=== PATIENT | male | born 1965 | race Two or more races ===

== ENCOUNTER 2024-04-09 19:35 | Emergency (ER) | payer MEDICARE, MEDICAID, SELFPAY ==
--- NOTE | 2024-04-09 19:38 | EKG_ITS ---
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: : 1965 Requested By: ED Temporary Provider Order Number: [id number] Reading MD: ED Temporary Provider Measurements Intervals [place] Rate: 104 P: 23 [place]: 145 QRS: -31 QRSD: 106 T: -1 QT: 320 QTc: 422 Interpretive Statements SINUS TACHYCARDIA LOW QRS VOLTAGE IN PRECORDIAL LEADS [QRS DEFLECTION < 1.0 mV IN CHEST LEADS] POSSIBLE RIGHT VENTRICULAR CONDUCTION DELAY [RSR (QR) IN V1/V2] ANTEROLATERAL MYOCARDIAL INFARCTION , OF INDETERMINATE AGE [40+ ms Q WAVE IN I/aVL/V3-V6] Compared to ECG 08/27/2023 20:38:06 Low QRS voltage now present Myocardial infarct finding now present /store/S0/[id number]
[2024-04-09 19:51] VITALS: BP 95/58; PULSE 106; RESP 20; TEMP 37; O2SAT 100
--- NOTE | 2024-04-09 20:20 | EDRME_ITS ---
Rapid Medical Screening Exam [facility], LAT[facility] Arrival date/time: 04/09/24 19:35 58M with history of fibromyalgia, CAD s/p CABG, HLD, DM, seizures, and memory loss/residual deficits 2/2 [place] presents to ED with 1 week of increased weakness. Patient also has 1 day of CP and SOB. Chief Complaint: Chest Pain Vital signs: Vital Signs Temperature 98.6 F 04/09/24 19:51 Pulse Rate 106 H 04/09/24 19:51 Respiratory Rate 20 04/09/24 19:51 Blood Pressure 95/58 L 04/09/24 19:51 Pulse Oximetry (%) 100 04/09/24 19:51 Oxygen Delivery Method Room Air 04/09/24 19:51
--- NOTE | 2024-04-09 20:21 | XR_ITS ---
Examination: AP chest single view Technique: AP portable upright chest single view Exam date and time: 11/08/20232038 hrs. Indications: Chest pain today. Findings: Mild enlargement cardiac contour CABG No pneumonia or pulmonary edema Impression: No pneumonia or pulmonary edema
[2024-04-09] MEDS: ASPIRIN 81 MG CHEW 324 MG PO (20:52)
[2024-04-09] MEDS: ONDANSETRON INJ 2 MG/ML INJ 2 ML 4 MG IV (20:53)
[2024-04-09] MEDS: MORPHINE SULF INJ 10 MG/ML VIAL 6 MG IVP (20:53)
[2024-04-09] MEDS: INSULIN HUM REGULAR 1 UNIT/0.01 ML (PER UNIT) 10 UNIT IV (20:53)
[2024-04-09 21:35] LABS: Base Excess, Venous 0 (-3-3); O2 Saturation, Venous 51 % (96-97); PCO2, Venous 41 mmHg (36-56); PO2, Venous 27 mmHg (15-58)
[2024-04-09 21:45] LABS: Basophils % (Auto) 0 % (0-2.5); Eosinophils # (Auto) 0.1 Thou/mm3 (0.0-0.5); Eosinophils % (Auto) 0 % (0-10); Hematocrit 40.3 % (41.0-53.0); Hemoglobin 14.3 g/dL (13.5-16.0); Immature Granulocytes % (Auto) 1 % (0-0); Immature Granulocytes Auto 0.06 Thou/mm3 (0.00-0.00); Lymphocytes # (Auto) 1.9 Thou/mm3 (1.0-4.8); Lymphocytes % (Auto) 16 % (10-50); Mean Corpuscular HGB Conc 35.5 g/dl (31.0-37.0); Mean Corpuscular Hemoglobin 27.9 pg (25.0-35.0); Mean Corpuscular Volume 79 fL (80-100); Monocytes # (Auto) 0.9 Thou/mm3 (0.0-0.8); Monocytes % (Auto) 8 % (0-12); Neutrophils # (Auto) 9.1 Thou/mm3 (1.8-7.7); Neutrophils % (Auto) 76 % (37-80); Nucleated Red Blood Cell % 0 /100 WBC (0); Platelet Count 323 Thou/mm3 (140-440); RDW Standard Deviation 36.2 fL (35.1-43.9); Red Blood Count 5.13 Miln/mm3 (4.50-5.90); White Blood Count 12.1 Thou/mm3 (3.8-10.6)
[2024-04-09 21:59] LABS: Lactate (Lactic Acid) 4.2 mMol/L (0.4-2.0)
[2024-04-09 22:17] LABS: Partial Thromboplastin Time 25.3 Seconds (22.0-36.0); Prothrombin Time 10.7 Seconds (9.0-12.2)
[2024-04-09 22:28] LABS: Alanine Aminotransferase 34 U/L (10-49); Albumin, Serum 5.2 gm/dL (3.5-5.0); Albumin/Globulin Ratio 1.9 (1.2-2.2); Alkaline Phosphatase 94 U/L (46-116); Anion Gap 10 (7-16); Aspartate Amino Transferase 21 U/L (0-34); BUN/Creatinine Ratio 17 Ratio (12-20); Bilirubin,Total 1.7 mg/dL (0.3-1.2); Blood Urea Nitrogen 25 mg/dL (9-23); Calcium 10.7 mg/dL (8.3-10.6); Calcium (Corrected) 10.7 mg/dL (8.5-10.1); Carbon Dioxide 24.3 mMol/L (20.0-31.0); Chloride 94 mMol/L (98-107); Creatinine (Component) 1.5 mg/dL (0.6-1.3); Globulin 2.8 gm/dL (2.3-3.5); Osmolality,Calculated 281 (275-295); Potassium 5.3 mMol/L (3.4-5.1); Sodium 128 mMol/L (136-145); Thyroid Stimulating Hormone 1.14 uIU/mL (0.55-4.78); Troponin I < 0.020 ng/mL (0.0-0.045); eGFR 54 See Note
[2024-04-09 22:30] VITALS: BP 94/62; PULSE 93; RESP 16; TEMP 36.7; O2SAT 97
[2024-04-09 22:30] LABS: B-Type Natriuretic Peptide < 20 pg/mL (0-100); Glucose 463 mg/dL (74-106)
[2024-04-09 22:42] LABS: D-Dimer < 250 ng/mL (<600)
[2024-04-09 22:52] LABS: Beta Hydroxybutyrate 0.2 mmol/L (<0.6)
[2024-04-09 23:14] LABS: Collection Type, Urine Clean Catch
[2024-04-09 23:23] LABS: Bilirubin,Urine Negative (Negative); Blood,Urine Negative (Negative); Clarity,Urine Turbid (Clear/Hazy); Color,Urine Yellow (Lt Yel-Yel); Culture Indicated,Urine Not Indicated; Glucose, Urine 4+ (Negative); Hyaline Casts,Urine < 1 /hpf (0-1); Ketones,Urine Negative (Negative); Leukocyte Esterase,Urine Negative (Negative); Nitrite,Urine Negative (Negative); PH,Urine 5.5 (5.0-7.0); Protein,Urine 1+ (Neg - Trace); RBC,Urine < 1 /hpf (0-3); Specific Gravity,Urine 1.027 (1.001-1.035); Squamous Epithelial Cell,Urine < 1 /hpf (0-5); Urobilinogen,Urine Negative mg/dL (0.0-1.0); WBC,Urine 6 /hpf (0-5)
[2024-04-09 23:34] LABS: Troponin I < 0.020 ng/mL (0.0-0.045)
[2024-04-10 00:23] LABS: Reflex Lactate? Y
--- NOTE | 2024-04-10 00:48 | PD.EDCHEST ---
ED Chest Pain RME/HPI General Chief Complaint: Chest Pain Stated Complaint: CHEST PAIN, IM HAVING HEART ATTACK Time Seen by Provider: 04/09/24 20:41 Arrival date/time: 04/09/24 19:35 RME / HPI RME / HPI narrative: 04/09/24 19:35 58M with history of fibromyalgia, CAD s/p CABG, HLD, DM, seizures, and memory loss/residual deficits 2/2 [place] presents to ED with 1 week of increased weakness. Patient also has 1 day of CP and SOB. This section includes all my notes and documentations, including HPI, PE, and ED course. Manohar Selby MD HPI: 58-year-old male here to be evaluated with a couple day history of chest pain, severely worse in the past few hours. He localizes pain in the left side of the sternum. Worse with palpation and certain movement. No other complaints. ROS: All negative except as documented in HPI. Physical Exam: General: Alert and oriented. Appears comfortable. Eyes: Conjunctivae and lids clear. ENT: No nasal congestion. Neck: Supple. No JVD. Heart: RRR. Lungs: No respiratory distress. Good air movement. No rhonchi, wheezing, rales. Chest: Palpation of the anterior chest left of the sternum reproduces his pain. Abdomen: Soft and nontender. Back: No CVA tenderness. Skin: Warm and dry. Neuro: Alert and oriented X 3. I reviewed all diagnostic test results. My interpretation of the EKG is sinus rhythm with nonspecific ST?T changes. My interpretation of the chest x-ray is no acute findings. Blood tests remarkable for negative troponin/D-dimer/BNP and hyperglycemia. At this point, diagnoses include chest wall pain and hyperglycemia. Treatment here included aspirin and morphine and insulin. Significant improvement noted. Recommended more outpatient cardiac workup. Based on my best medical judgment, made decision no further evaluation or treatment indicated at this time. Patient understands and agrees to the discharge instructions customized and printed, see below. Discharge instructions from Dr. Selby: 1. After extensive evaluation, there is no life-threatening condition.? Such as heart attack or pulmonary embolism (blood clots in your lungs) or pneumothorax (collapsed lung). 2. Your pain is originating from the chest wall and not from an internal organ.? The chest wall has many joints and muscles between the ribs, so sprains and strains are common. 3. Apply ice or heat if helpful.? Tylenol with codeine for severe pain. 4. See a private doctor on 04/13/2024. Ask to review all test results and official radiology reports, to make sure you receive all necessary follow-ups and monitoring. To make sure there is no serious underlying heart condition, ask to help you get more tests for your heart that cannot be done here in the ER.? Such as Holter Monitor (cardiac monitoring at home from a day to even a month), heart stress test (on treadmill or with medication), echocardiogram (imaging of your heart structures), heart catherization (checking for blockages in your heart arteries), and a referral to see a [employer] Sc[employer]ager. 5. Seek immediate medical care with worsening or with any concerns. Manohar Selby MD Related Data Home Medications ?Medication ?Instructions ?Recorded ?Confirmed sitagliptin phosphate 50 50 mg PO BID 04/04/18 02/21/21 mg-metformin 1,000 mg tablet (Janumet) aripiprazole 30 mg tablet 30 mg PO QDAY 06/06/18 02/21/21 atorvastatin 40 mg tablet 40 mg PO QDAY 06/06/18 05/26/19 baclofen 20 mg tablet 20 mg PO TID 06/06/18 05/26/19 clonazepam 1 mg tablet 1 mg PO BID 06/06/18 05/26/19 divalproex 500 mg tablet,extended 500 mg PO QDAY 06/06/18 02/21/21 release 24 hr duloxetine 60 mg capsule,delayed 60 mg PO QDAY 06/06/18 02/03/20 release fluconazole 200 mg tablet 200 mg PO QDAY 06/06/18 05/26/19 gabapentin 400 mg capsule 400 mg PO TID 06/06/18 02/03/20 oxycodone-acetaminophen 10 mg-325 1 tab PO DAILY PRN Pain 06/06/18 05/26/19 mg tablet pentoxifylline 400 mg 400 mg PO TID 06/06/18 05/26/19 tablet,extended release phenytoin sodium extended 100 mg 100 mg PO BID 06/06/18 05/26/19 capsule propranolol 10 mg tablet 10 mg PO BID 06/06/18 02/03/20 zaleplon 10 mg capsule 10 mg PO QDAY 06/06/18 05/26/19 Previous Rx's ?Medication ?Instructions ?Recorded acyclovir 800 mg tablet 800 mg PO TID #28 tabs 05/29/19 aspirin 81 mg tablet,delayed 81 mg PO QDAY #30 tabs 05/29/19 release (Aspir-Low) insulin detemir U-100 100 unit/mL 30 unit (0.3 mL) subcut QPM #0 mL 05/29/19 (3 mL) subcutaneous pen (Levemir FlexTouch U-100 Insulin) acetaminophen 300 mg-codeine 30 mg 2 tab PO TID PRN pain #20 tabs 04/10/24 tablet Allergies Allergy/AdvReac Type Severity Reaction Status Date / Time No Known Allergies Allergy Verified 02/03/20 13:46 Course Quality Measures none Orders Category Date Time Status Blood glucose [Bedside Blood Glucose] NOW Care 04/09/24 20:21 Active EKG (ED ONLY) *Do not use* NOW Care 04/09/24 19:38 Completed Insert IV NOW Care 04/09/24 20:25 Active Straight [In and Out Catheter] X1 Care 04/09/24 20:44 Active EKG (ED Only) Stat Exams 04/09/24 19:38 Draft XR chest 1V portable Stat Exams 04/09/24 20:21 Completed B-Type Natriuretic Peptide Stat Lab 04/09/24 21:00 Completed Beta Hydroxybutyrate Stat Lab 04/09/24 21:00 Completed CBC Stat Lab 04/09/24 21:00 Completed Comprehensive Metabolic Panel Stat Lab 04/09/24 21:00 Completed D-Dimer Stat Lab 04/09/24 21:00 Completed Lactate (Lactic Acid) Stat Lab 04/09/24 21:00 Completed Lactic Acid, 3 HR Stat Lab 04/10/24 00:23 Ordered Magnesium Stat Lab 04/09/24 21:00 Completed Partial Thromboplastin Time Stat Lab 04/09/24 21:00 Completed Prothrombin Time with INR Stat Lab 04/09/24 21:00 Completed TSH [Thyroid Stimulating Hormone] Stat Lab 04/09/24 21:00 Completed Troponin I Stat Lab 04/09/24 21:00 Completed Troponin I Stat Lab 04/09/24 23:08 Completed UA, C/S IF [Urinalysis, C/S if Indicated] Stat Lab 04/09/24 23:09 Completed VBG [Venous Blood Gas] Stat Lab 04/09/24 21:00 Completed Aspirin Chew Med 04/09/24 20:44 Discontinued 324 mg PO X1 ONE Insulin Regular Med 04/09/24 20:45 Discontinued 10 unit IV X1 ONE Morphine Inj Med 04/09/24 20:44 Discontinued 6 mg IVP X1 ONE Ondansetron Inj [Zofran Inj] Med 04/09/24 20:44 Discontinued 4 mg IV X1 ONE Vital Signs Vital signs: Vital Signs Temperature 98.6 F 04/09/24 19:51 Pulse Rate 106 H 04/09/24 19:51 Respiratory Rate 20 04/09/24 19:51 Blood Pressure 95/58 L 04/09/24 19:51 Pulse Oximetry (%) 100 04/09/24 19:51 Oxygen Delivery Method Room Air 04/09/24 19:51 Chest Pain Patient data External records reviewed:: [facility] previous records and EMS form Clinical information provided by:: patient and EMS Social determinants that could affect healthcare access:: none Patient has the following chronic illnesses:: CAD and hyperlipidemia and DM and alcohol use How is presenting disease/condition affected by chronic disease/condition?: exacerbated by Evaluation data The following diagnostics were reviewed and interpreted by me:: lab results, radiology exam(s) and EKG tracing(s) Lab and/or radiology exams considered but not ordered:: None Interpretation Summary: Chest wall pain and hyperglycemia Medications / Prescriptions Medications or Prescriptions considered but not ordered:: None Medication administrations:: Medication Administration History Discontinued Medications Aspirin (Aspirin 81 Mg Chew) 324 mg PO X1 ONE Stop: 04/09/24 20:45 Last Admin: 04/09/24 20:52 Dose: 324 mg Documented By: JU Insulin Human Regular (Insulin Hum Regular 1 Unit/0.01 Ml (Per Unit)) 10 unit IV X1 ONE Stop: 04/09/24 20:46 Last Admin: 04/09/24 20:53 Dose: 10 unit Documented By: JU Co-signed By: CECILE Morphine Sulfate (Morphine Sulf Inj 10 Mg/Ml Vial) 6 mg IVP X1 ONE Stop: 04/09/24 20:45 Last Admin: 04/09/24 20:53 Dose: 6 mg Documented By: JU Ondansetron HCl (Ondansetron Inj 2 Mg/Ml Inj 2 Ml) 4 mg IV X1 ONE; Protocol Stop: 04/09/24 20:45 Last Admin: 04/09/24 20:53 Dose: 4 mg Documented By: DB Aspirin and morphine and insulin Consultations Consultation(s) initiated? (list below): No Diagnosis Chest Pain Differential Diagnosis: pneumothorax, stable angina, unstable angina pectoris, atypical chest pain, st elevation myocardial infarction, costochondritis and other (PE, CHF, pneumonia) Most likely diagnosis given after review of the tests above:: Chest wall pain and hyperglycemia Admission Indicated Admission indicated?: not indicated Explain why admission is indicated or not indicated:: Admission criteria not met Admission Request Was there a request for admission?: No Disposition Plan Disposition Plan: Discharge Discharge Attestation Discharge Attestation: The patient and all family members were given an opportunity to ask questions and understood the discharge instructions. Discharge instructions specifically effects, indications for sooner follow up or return to the emergency department, and the expected course of current diagnosis. Patient condition: Stable Discharge Plan Plan Patient Disposition: HOME (Self Care) Prescriptions/Referrals Prescriptions/Med Rec: New acetaminophen-codeine 300-30 mg tablet 2 tab PO TID MDD 6 PRN (Reason: pain) Qty: 20 0RF No Action Janumet 50-1,000 mg Tablet 50 mg PO BID atorvastatin 40 mg Tablet 40 mg PO QDAY fluconazole 200 mg Tablet 200 mg PO QDAY gabapentin 400 mg Capsule 400 mg PO TID clonazepam 1 mg Tablet 1 mg PO BID phenytoin sodium extended 100 mg Capsule 100 mg PO BID pentoxifylline 400 mg Tablet Extended Release 400 mg PO TID baclofen 20 mg Tablet 20 mg PO TID propranolol 10 mg Tablet 10 mg PO BID oxycodone-acetaminophen 10-325 mg Tablet 1 tab PO DAILY PRN (Reason: Pain) divalproex 500 mg Tablet Extended Release 24 Hr 500 mg PO QDAY zaleplon 10 mg Capsule 10 mg PO QDAY aripiprazole 30 mg Tablet 30 mg PO QDAY duloxetine 60 mg Capsule,Delayed Release(Dr/Ec) 60 mg PO QDAY aspirin [Aspir-Low] 81 mg Tablet,Delayed Release (Dr/Ec) 81 mg PO QDAY Qty: 30 0RF acyclovir 800 mg Tablet 800 mg PO TID Qty: 28 0RF Levemir FlexTouch U100 Insulin 100 unit/mL (3 mL) Insulin Pen 30 unit SUBCUT QPM Qty: 0 0RF Referrals: Etienne Fernando MD [Primary Care Provider] - In 1 week Problem List Clinical Impression: Chest wall pain Patient/Caregiver Discharge Instructions Discharge Activity: activity as tolerated Education Materials: ED Chest Pain, Noncardiac Additional Instructions: Discharge instructions from Dr. Selby: 1. After extensive evaluation, there is no life-threatening condition.? Such as heart attack or pulmonary embolism (blood clots in your lungs) or pneumothorax (collapsed lung). 2. Your pain is originating from the chest wall and not from an internal organ.? The chest wall has many joints and muscles between the ribs, so sprains and strains are common.?? 3. Apply ice or heat if helpful.? Tylenol with codeine for severe pain. 4. See a private doctor on 04/13/2024. Ask to review all test results and official radiology reports, to make sure you receive all necessary follow-ups and monitoring. To make sure there is no serious underlying heart condition, ask to help you get more tests for your heart that cannot be done here in the ER.? Such as Holter Monitor (cardiac monitoring at home from a day to even a month), heart stress test (on treadmill or with medication), echocardiogram (imaging of your heart structures), heart catherization (checking for blockages in your heart arteries), and a referral to see a [employer] Sc[employer]ager.? 5. Seek immediate medical care with worsening or with any concerns.?? Discharge instructions from Dr. Selby: 1. After extensive evaluation, there is no life-threatening condition.? Such as heart attack or pulmonary embolism (blood clots in your lungs) or pneumothorax (collapsed lung). 2. Your pain is originating from the chest wall and not from an internal organ.? The chest wall has many joints and muscles between the ribs, so sprains and strains are common. 3. Apply ice or heat if helpful.? Tylenol with codeine for severe pain. 4. See a private doctor on 04/13/2024. Ask to review all test results and official radiology reports, to make sure you receive all necessary follow-ups and monitoring. To make sure there is no serious underlying heart condition, ask to help you get more tests for your heart that cannot be done here in the ER.? Such as Holter Monitor (cardiac monitoring at home from a day to even a month), heart stress test (on treadmill or with medication), echocardiogram (imaging of your heart structures), heart catherization (checking for blockages in your heart arteries), and a referral to see a Text[employer] Scrap Salvager. 5. Seek immediate medical care with worsening or with any concerns. Print Language: Khmer Stand Alone Forms: Mini Award Info., Patient Portal Info Letter
[2024-04-10 01:10] VITALS: BP 97/57; PULSE 97; RESP 16; TEMP 36.8; O2SAT 99
== END 2024-04-10 01:06 | disposition home or self-care (01) ==
PROVIDERS: Physician Assistant; Emergency Provider Emergency Medicine; PCP Family Medicine
DX: R07.89 Other chest pain (principal); I25.10 Atherosclerotic heart disease of native coronary artery without angina pectoris; E78.5 Hyperlipidemia, unspecified; E11.65 Type 2 diabetes mellitus with hyperglycemia; M79.7 Fibromyalgia; Z95.1 Presence of aortocoronary bypass graft; Z79.84 Long term (current) use of oral hypoglycemic drugs
CPT/HCPCS: 36415; 71045; 80053; 81001; 82010; 82803; 83605; 83735; 83880; 84443; 84484; 85025; 85379; 85610; 85730; 93005; 96374; 96375; 99284; J1815; J2270; J2405; A9270

== ENCOUNTER 2024-06-18 14:52 | Emergency (ER) | payer MEDICARE, MEDICAID, SELFPAY ==
--- NOTE | 2024-06-18 15:06 | EKG_ITS ---
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1965 Requested By: Perez Dalton (PANKAJ) Order Number: [id number] Reading MD: Perez Dalton (PANKAJ) Measurements Intervals [place] Rate: 112 P: 33 [place]: 141 QRS: -31 QRSD: 95 T: -20 QT: 321 QTc: 438 Interpretive Statements SINUS TACHYCARDIA POSSIBLE RIGHT VENTRICULAR CONDUCTION DELAY [RSR (QR) IN V1/V2] INFERIOR MYOCARDIAL INFARCTION , OF INDETERMINATE AGE [40+ ms Q WAVE AND/OR ST/T ABNORMALITY IN II/aVF] ANTEROLATERAL MYOCARDIAL INFARCTION , OF INDETERMINATE AGE [40+ ms Q WAVE IN I/aVL/V3-V6] Compared to ECG 04/09/2024 20:01:36 No significant changes /store/S0/[id number]/[id number].pdf
[2024-06-18 15:12] VITALS: BP 105/69; PULSE 115; RESP 18; TEMP 36.6; O2SAT 96; BMI 28.1
--- NOTE | 2024-06-18 15:15 | XR_ITS ---
Examination: CT abdomen and pelvis without contrast. Coronal 3-D reconstructions. Sagittal 2-D reconstructions. Date and time of exam:June 18, 2024 1533 hours Comparison August 17, 2023 INDICATIONS: Bilateral flank pain with left testicular pain today CTDI: vol (mGy): 8.13 DLP: (mGycm): 545 Technique: Axial images of the abdomen have been obtained, 3 mm slice thickness Intravenous contrast material has not been administered. Low dose protocols were performed. One or more of the following dose reduction techniques were used; automated exposure control, adjustment of the mA and/or KV according to patient size, use of iterative reconstruction technique. Findings: No focal liver or splenic lesion Absent gallbladder No pancreatic mass No renal or ureteral calculi, no hydronephrosis Mild perinephric stranding Abdominal aortic calcification no aneurysmal dilatation No pericecal inflammatory change Colonic diverticulosis, no diverticulitis No bladder mass or bladder calculi No significant prostatomegaly IMPRESSION: No renal or ureteral calculi, no hydronephrosis Perinephric stranding, clinical correlation advised No bladder mass or bladder calculi
--- NOTE | 2024-06-18 15:16 | PD.EDRME ---
Rapid Medical Screening Exam RME Arrival date/time: 06/18/24 14:52 59-year-old male presents to the emergency department complaints of lower back pain and flank pain Chief Complaint: Back Pain/Injury Time Seen by Provider: 06/18/24 15:06 Vital signs: Vital Signs Temperature 98 F 06/18/24 15:12 Pulse Rate 115 H 06/18/24 15:12 Respiratory Rate 18 06/18/24 15:12 Blood Pressure 105/69 06/18/24 15:12 Pulse Oximetry (%) 96 06/18/24 15:12 Oxygen Delivery Method Room Air 06/18/24 15:12
[2024-06-18] MEDS: KETOROLAC INJ 30 MG/ML VIAL IM (15:24)
[2024-06-18] MEDS: HYDROcodone/APAP 5/325 TABLET 1 TAB PO (15:24)
[2024-06-18 16:07] LABS: Basophils % (Auto) 0 % (0-2.5); Eosinophils # (Auto) 0.1 Thou/mm3 (0.0-0.5); Eosinophils % (Auto) 1 % (0-10); Hematocrit 39.5 % (41.0-53.0); Hemoglobin 13.8 g/dL (13.5-16.0); Immature Granulocytes % (Auto) 0 % (0-0); Immature Granulocytes Auto 0.04 Thou/mm3 (0.00-0.00); Lymphocytes # (Auto) 1.6 Thou/mm3 (1.0-4.8); Lymphocytes % (Auto) 17 % (10-50); Mean Corpuscular HGB Conc 34.9 g/dl (31.0-37.0); Mean Corpuscular Hemoglobin 28.2 pg (25.0-35.0); Mean Corpuscular Volume 81 fL (80-100); Monocytes # (Auto) 0.7 Thou/mm3 (0.0-0.8); Monocytes % (Auto) 7 % (0-12); Neutrophils # (Auto) 7.1 Thou/mm3 (1.8-7.7); Neutrophils % (Auto) 75 % (37-80); Nucleated Red Blood Cell % 0 /100 WBC (0); Platelet Count 349 Thou/mm3 (140-440); RDW Standard Deviation 37.4 fL (35.1-43.9); White Blood Count 9.5 Thou/mm3 (3.8-10.6)
[2024-06-18 16:40] LABS: Alanine Aminotransferase 27 U/L (10-49); Albumin, Serum 4.4 gm/dL (3.5-5.0); Albumin/Globulin Ratio 1.6 (1.2-2.2); Alkaline Phosphatase 80 U/L (46-116); Anion Gap 10 (7-16); Aspartate Amino Transferase 22 U/L (0-34); BUN/Creatinine Ratio 13 Ratio (12-20); Blood Urea Nitrogen 15 mg/dL (9-23); Calcium 9.5 mg/dL (8.3-10.6); Calcium (Corrected) 9.5 mg/dL (8.5-10.1); Carbon Dioxide 24.2 mMol/L (20.0-31.0); Chloride 100 mMol/L (98-107); Creatinine (Component) 1.2 mg/dL (0.6-1.3); Estimated Creatinine Clearance 68.6 mL/min (>60); Globulin 2.7 gm/dL (2.3-3.5); Lipase 40 U/L (12-53); Osmolality,Calculated 294 (275-295); Potassium 4.3 mMol/L (3.4-5.1); Sodium 134 mMol/L (136-145); Total Protein 7.1 gm/dL (5.7-8.2); eGFR > 60 See Note
[2024-06-18 16:58] LABS: Glucose 544 mg/dL (74-106)
[2024-06-18 17:50] LABS: Collection Type, Urine Clean Catch; Squamous Epithelial Cell,Urine 0 /hpf (0-5); WBC,Urine 0 /hpf (0-5)
[2024-06-18 17:55] LABS: Bilirubin,Urine Negative (Negative); Blood,Urine Negative (Negative); Clarity,Urine Clear (Clear/Hazy); Color,Urine Lt-Yellow (Lt Yel-Yel); Culture Indicated,Urine Not Indicated; Glucose, Urine 4+ (Negative); Ketones,Urine Negative (Negative); Leukocyte Esterase,Urine Negative (Negative); Nitrite,Urine Negative (Negative); Protein,Urine Negative (Neg - Trace); RBC,Urine < 1 /hpf (0-3); Specific Gravity,Urine 1.035 (1.001-1.035); Urobilinogen,Urine Negative mg/dL (0.0-1.0)
[2024-06-18 18:07] LABS: Amphetamine/Methamp Scrn,U Negative (Negative); Barbiturate Screen,Urine Negative (Negative); Benzodiazepines Screen,Urine Negative (Negative); Benzoylecgonine Screen, Ur Negative (Negative); Fentanyl Screen,Urine Negative (Negative); Opiate Screen,Urine Negative (Negative); THC Screen,Urine Negative (Negative)
--- NOTE | 2024-06-18 18:34 | PD.EDBACK ---
ED Back Injury Pain RME/HPI General Chief Complaint: Back Pain/Injury Stated Complaint: FLANK PAIN X4 DAYS Time Seen by Provider: 06/18/24 15:06 Arrival date/time: 06/18/24 14:52 RME / HPI RME / HPI Narrative: 59-year-old male patient with significant history of diabetes mellitus, came in for evaluation regarding left flank pain. This been ongoing for the last 4 days. Described as dull ache, severity moderate. Patient denies any fever denies any hematuria denies any vomiting denies any other complaints. Patient took [place] prior to arrival Related Data Home Medications ?Medication ?Instructions ?Recorded ?Confirmed sitagliptin phosphate 50 50 mg PO BID 04/04/18 02/21/21 mg-metformin 1,000 mg tablet (Janumet) aripiprazole 30 mg tablet 30 mg PO QDAY 06/06/18 02/21/21 atorvastatin 40 mg tablet 40 mg PO QDAY 06/06/18 05/26/19 baclofen 20 mg tablet 20 mg PO TID 06/06/18 05/26/19 clonazepam 1 mg tablet 1 mg PO BID 06/06/18 05/26/19 divalproex 500 mg tablet,extended 500 mg PO QDAY 06/06/18 02/21/21 release 24 hr duloxetine 60 mg capsule,delayed 60 mg PO QDAY 06/06/18 02/03/20 release fluconazole 200 mg tablet 200 mg PO QDAY 06/06/18 05/26/19 gabapentin 400 mg capsule 400 mg PO TID 06/06/18 02/03/20 oxycodone-acetaminophen 10 mg-325 1 tab PO DAILY PRN Pain 06/06/18 05/26/19 mg tablet pentoxifylline 400 mg 400 mg PO TID 06/06/18 05/26/19 tablet,extended release phenytoin sodium extended 100 mg 100 mg PO BID 06/06/18 05/26/19 capsule propranolol 10 mg tablet 10 mg PO BID 06/06/18 02/03/20 zaleplon 10 mg capsule 10 mg PO QDAY 06/06/18 05/26/19 Previous Rx's ?Medication ?Instructions ?Recorded acyclovir 800 mg tablet 800 mg PO TID #28 tabs 05/29/19 aspirin 81 mg tablet,delayed 81 mg PO QDAY #30 tabs 05/29/19 release (Aspir-Low) insulin detemir U-100 100 unit/mL 30 unit (0.3 mL) subcut QPM #0 mL 05/29/19 (3 mL) subcutaneous pen (Levemir FlexTouch U-100 Insulin) acetaminophen 300 mg-codeine 30 mg 2 tab PO TID PRN pain #20 tabs 04/10/24 tablet Allergies Allergy/AdvReac Type Severity Reaction Status Date / Time No Known Allergies Allergy Verified 02/03/20 13:46 Review of Systems Review of Systems Narrative Review of Systems: Review of system reviewed and within normal limits except mentioned in HPI ED Exam Narrative Physical exam: VITAL SIGNS: Reviewed. GENERAL APPEARANCE: Alert and interactive, follows commands, no acute distress, HEAD AND FACE: Non-traumatic. ENT: PERRL, pink conjunctivitis, eyelid no trauma, Mucous membrane moist. NECK: Supple, nontender, no nuchal rigidity. CHEST: No tenderness, no crepitus, no paradoxical movement, no retractions. LUNGS: Clear, well ventilated, symmetric, no rales, no wheezing, no ronchi, no stridor, good breath sounds bilaterally. HEART: Regular rate, regular rhythm, no murmur, no gallops. ABDOMEN: Soft, positive bowel sounds, nondistended, no guarding, nontender, no rebound, no masses, RECTAL: Deferred. GENITAL: Deferred. NEUROLOGICAL: Gross motor function intact sensory function intact, Appropriate for age. MUSCULOSKELETAL: Left flank tenderness, full range of motion. EXTREMITIES: Nontender, full range of motion. SKIN: Color pink, dry, no rash, no lacerations, no abrasions, no contusions. LYMPHATICS: Deferred. Course Quality Measures none Orders Category Date Time Status EKG (ED ONLY) *Do not use* NOW Care 06/18/24 15:[address] abdomen pelvis wo con Stat Exams 06/18/24 15:15 Completed EKG (ED Only) Stat Exams 06/18/24 15:06 Draft CBC Stat Lab 06/18/24 15:30 Completed Comprehensive Metabolic Panel Stat Lab 06/18/24 15:30 Completed Drug Screen,Urine Stat Lab 06/18/24 17:45 Completed Lipase Stat Lab 06/18/24 15:30 Completed UA, C/S IF [Urinalysis, C/S if Indicated] Stat Lab 06/18/24 17:45 Completed HYDROcodone*/APAP 5/325 [[place] 5/325] Med 06/18/24 15:15 Discontinued 1 tab PO X1 ONE Ketorolac Inj [Toradol Inj] Med 06/18/24 15:15 Discontinued 30 mg IM X1 ONE Vital Signs Vital signs: Vital Signs Temperature 98 F 06/18/24 15:12 Pulse Rate 115 H 06/18/24 15:12 Respiratory Rate 18 06/18/24 15:12 Blood Pressure 105/69 06/18/24 15:12 Pulse Oximetry (%) 96 06/18/24 15:12 Oxygen Delivery Method Room Air 06/18/24 15:12 Back Pain / Injury MDM Narrative MDM Narrative:: 59-year-old male patient with significant history of diabetes mellitus, came in for evaluation regarding left flank pain. This been ongoing for the last 4 days. Described as dull ache, severity moderate. Patient denies any fever denies any hematuria denies any vomiting denies any other complaints. Patient took [place] prior to arrival Patient's workup today all came back normal except for a blood sugar of 544 with no sign of diabetic ketoacidosis. Urinalysis no UTI. CT scan of the abdomen and pelvis showed No renal or ureteral calculi, no hydronephrosis Perinephric stranding, clinical correlation advised No bladder mass or bladder calculi Results discussed with the patient. Repeat blood sugar was not done since patient eloped from the emergency room Patient data External records reviewed:: None Clinical information provided by:: patient Social determinants that could affect healthcare access:: none Patient has the following chronic illnesses:: Diabetes mellitus How is presenting disease/condition affected by chronic disease/condition?: exacerbated by Evaluation data The following diagnostics were reviewed and interpreted by me:: lab results and radiology exam(s) Lab and/or radiology exams considered but not ordered:: None Interpretation Summary: EKG showed sinus tachycardia, ventricular rate of 112 bpm, no ST segment elevation depression noted. Laboratory results see MDM Medications / Prescriptions Medications or Prescriptions considered but not ordered:: None Medication administrations:: Medication Administration History Discontinued Medications Hydrocodone Bitart/Acetaminophen (Hydrocodone/Apap 5/325 Tablet) 1 tab PO X1 ONE Stop: 06/18/24 15:16 Last Admin: 06/18/24 15:24 Dose: 1 tab Documented By: Ketorolac Tromethamine (Ketorolac Inj 30 Mg/Ml Vial) 30 mg IM X1 ONE Stop: 06/18/24 15:16 Last Admin: 06/18/24 15:24 Dose: 30 mg Documented By: [place] and Toradol Consultations Consultation(s) initiated? (list below): No Diagnosis Differential diagnosis back pain/injury: lumbar radiculopathy, sciatica and renal colic Most likely diagnosis given after review of the tests above:: Plan pain, muscular, hyperglycemia Admission Indicated Admission indicated?: not indicated Admission Request Was there a request for admission?: No Admission Attestation Admission request attestation: Elopement Disposition Plan Disposition Plan: Discharge Discharge Attestation Discharge Attestation: Elopement Discharge Plan Plan Patient Disposition: Elopement Prescriptions/Referrals Prescriptions/Med Rec: No Action Janumet 50-1,000 mg Tablet 50 mg PO BID atorvastatin 40 mg Tablet 40 mg PO QDAY fluconazole 200 mg Tablet 200 mg PO QDAY gabapentin 400 mg Capsule 400 mg PO TID clonazepam 1 mg Tablet 1 mg PO BID phenytoin sodium extended 100 mg Capsule 100 mg PO BID pentoxifylline 400 mg Tablet Extended Release 400 mg PO TID baclofen 20 mg Tablet 20 mg PO TID propranolol 10 mg Tablet 10 mg PO BID oxycodone-acetaminophen 10-325 mg Tablet 1 tab PO DAILY PRN (Reason: Pain) divalproex 500 mg Tablet Extended Release 24 Hr 500 mg PO QDAY zaleplon 10 mg Capsule 10 mg PO QDAY aripiprazole 30 mg Tablet 30 mg PO QDAY duloxetine 60 mg Capsule,Delayed Release(Dr/Ec) 60 mg PO QDAY aspirin [Aspir-Low] 81 mg Tablet,Delayed Release (Dr/Ec) 81 mg PO QDAY Qty: 30 0RF acyclovir 800 mg Tablet 800 mg PO TID Qty: 28 0RF Levemir FlexTouch U100 Insulin 100 unit/mL (3 mL) Insulin Pen 30 unit SUBCUT QPM Qty: 0 0RF acetaminophen-codeine 300-30 mg tablet 2 tab PO TID MDD 6 PRN (Reason: pain) Qty: 20 0RF Referrals: Etienne Fernando MD [Primary Care Provider] - In 1 week Problem List Clinical Impression: Hyperglycemia, Flank pain Patient/Caregiver Discharge Instructions Print Language: Slovak
--- NOTE | 2024-06-18 19:03 | PC.NURSE ---
NO ANSWER AT ER LOBBY OR OUTSIDE ER TO BE RE EVALUATED.
== END 2024-06-18 19:04 | disposition left against medical advice (07) ==
PROVIDERS: Nurse Practitioner Primary Care; Emergency Provider Emergency Medicine; PCP Family Medicine
DX: E11.65 Type 2 diabetes mellitus with hyperglycemia (principal); R10.9 Unspecified abdominal pain; R00.0 Tachycardia, unspecified; Z79.4 Long term (current) use of insulin; Z79.84 Long term (current) use of oral hypoglycemic drugs; Z53.29 Procedure and treatment not carried out because of patient's decision for other reasons
CPT/HCPCS: 36415; 74176; 80053; 80307; 81001; 83690; 85025; 93005; 96372; 99284; J1885; A9270

== ENCOUNTER 2024-10-07 21:35 | Emergency (ER) | payer MEDICARE, MEDICAID, SELFPAY ==
--- NOTE | 2024-10-07 21:38 | XR_ITS ---
Examination: AP chest single view Technique AP portable sitting chest single view Date and time: October 07, 2024 at 2153 hours INDICATIONS: Chest pain and shortness of breath beginning today. FINDINGS: Mild enlargement cardiac contour CABG No pneumonia or pulmonary edema Moderate osteopenia IMPRESSION: No pneumonia or pulmonary edema
--- NOTE | 2024-10-07 21:38 | EKG_ITS ---
[facility] Test Date: 2024-10-07 Pat Name: SAMIA JEROME Department: Room: - Gender: Male Drapery Maker: : 1965 Requested By: Halie Uribe Order Number: [id number] Reading MD: Halie Uribe Measurements Intervals [place] Rate: 99 P: 34 IA: 139 QRS: -24 QRSD: 96 T: 20 QT: 346 QTc: 446 Interpretive Statements SINUS RHYTHM POSSIBLE RIGHT VENTRICULAR CONDUCTION DELAY [RSR (QR) IN V1/V2] PROBABLE LATERAL MYOCARDIAL INFARCTION , PROBABLY OLD [35 ms Q WAVE IN I/aVL/V5/V6] Compared to ECG 06/18/2024 15:22:23 Sinus tachycardia no longer present Myocardial infarct finding still present /store/S0/[id number]/ecg/[id number].pdf
[2024-10-07 21:42] VITALS: PULSE 99; RESP 22; O2SAT 98; BMI 26.6
--- NOTE | 2024-10-07 21:44 | PD.EDCHEST ---
ED Chest Pain RME/HPI General Chief Complaint: Chest Pain Stated Complaint: CHEST PAIN Time Seen by Provider: 10/07/24 21:37 Arrival date/time: 10/07/24 21:35 RME / HPI RME / HPI narrative: DR WEST MAIN ED EVALUATION: 59 y/o male with Hx of [place], Seizures, CAD, Atherosclerotic Heart Disease, Hypercholesterolemia, Cardiomyopathy, HTN, Schizophrenia, and Anxiety BIBA from home presents to ED c/o chest pain that radiates to his left arm and shortness of breath x just [employer]. Patient admits to stent placements and taking Nitroglycerin at home. Patient denies cough or any other associated symptoms or aggravating factors. No modifying factors, no radiation, no migration. No pain reported overall. No other concerns or complaints expressed at this time. Related Data Home Medications ?Medication ?Instructions ?Recorded ?Confirmed sitagliptin phosphate 50 50 mg PO BID 04/04/18 02/21/21 mg-metformin 1,000 mg tablet (Heathumenatalya) aripiprazole 30 mg tablet 30 mg PO QDAY 06/06/18 02/21/21 atorvastatin 40 mg tablet 40 mg PO QDAY 06/06/18 05/26/19 baclofen 20 mg tablet 20 mg PO TID 06/06/18 05/26/19 clonazepam 1 mg tablet 1 mg PO BID 06/06/18 05/26/19 divalproex 500 mg tablet,extended 500 mg PO QDAY 06/06/18 02/21/21 release 24 hr duloxetine 60 mg capsule,delayed 60 mg PO QDAY 06/06/18 02/03/20 release fluconazole 200 mg tablet 200 mg PO QDAY 06/06/18 05/26/19 gabapentin 400 mg capsule 400 mg PO TID 06/06/18 02/03/20 oxycodone-acetaminophen 10 mg-325 1 tab PO DAILY PRN Pain 06/06/18 05/26/19 mg tablet pentoxifylline 400 mg 400 mg PO TID 06/06/18 05/26/19 tablet,extended release phenytoin sodium extended 100 mg 100 mg PO BID 06/06/18 05/26/19 capsule propranolol 10 mg tablet 10 mg PO BID 06/06/18 02/03/20 zaleplon 10 mg capsule 10 mg PO QDAY 06/06/18 05/26/19 Previous Rx's ?Medication ?Instructions ?Recorded acyclovir 800 mg tablet 800 mg PO TID #28 tabs 05/29/19 aspirin 81 mg tablet,delayed 81 mg PO QDAY #30 tabs 05/29/19 release (Aspir-Low) insulin detemir U-100 100 unit/mL 30 unit (0.3 mL) subcut QPM #0 mL 05/29/19 (3 mL) subcutaneous pen (Levemir FlexTouch U-100 Insulin) acetaminophen 300 mg-codeine 30 mg 2 tab PO TID PRN pain #20 tabs 04/10/24 tablet Allergies Allergy/AdvReac Type Severity Reaction Status Date / Time No Known Allergies Allergy Verified 02/03/20 13:46 Review of Systems Review of Systems Systems Reviewed: All systems reviewed, normal except as documented Past Medical History Past Medical History NEUROLOGIC: Positive Neurological Disorders and Seizures CARDIAC: Positive Cardiac Disorders, Myocardial Infarction, Coronary Artery Disease, Atherosclerotic Heart Disease, Hypercholesterolemia, Cardiomyopathy and Hypertension RESPIRATORY: Positive Pneumonia MUSCULOSKELETAL: Positive Musculoskeletal Disorders, Arthritis and Fibromyalgia ENDOCRINE: Positive Endocrine Disorders and Diabetes Mellitus Type 2 PSYCHO/SOCIAL: Positive Schizophrenia, Depression and Anxiety OTHER HISTORY: Positive Chicken Pox Family History FAMILY HISTORY: Positive Family Cardiac Disorders Surgical History SURGICAL: Positive Open Heart Surgery, Coronary Artery Bypass Graft, Coronary Stent and Cardiac Catheterization ED Exam Narrative Physical exam: GENERAL APPEARANCE: alert and oriented x 4, well-developed, well-nourished, no acute distress VITALS: All vitals were reviewed and the pulse ox is 99% on room air, which is normal according to my interpretation. HEENT: Normocephalic, atraumatic; pupils equal, round, reactive to light; EOMI; mucous membranes pink, moist; oropharynx clear NECK: Supple LUNGS: CTABL; no wheezes, no rales, no rhonchi HEART: Regular rate, regular rhythm; normal S1, S2; no murmurs ABDOMEN: non distended; normal BS; soft, no tenderness, no guarding, no rebound; no masses, no organomegaly, no hernia BACK: no CVA tenderness EXTREMITIES: atraumatic; no edema NEUROLOGIC: awake; alert and oriented x4; cranial nerves II-XII grossly intact; no focal sensory or motor deficits PSYCHIATRIC: appropriate mood and affect SKIN: warm, dry, normal color; no rashes Course Course Course Narrative: CXR is ordered for determining the etiology of shortness of breath. Quality Measures none Orders Category Date Time Status Leasing Associate NOW Care 10/07/24 21:38 Active EKG (ED ONLY) *Do not use* NOW Care 10/07/24 21:38 Completed EKG (ED Only) Stat Exams 10/07/24 21:38 Draft XR chest 1V portable Stat Exams 10/07/24 21:38 Completed A1C [Glycohemoglobin w (eAG)] Stat Lab 10/07/24 21:45 Completed Alcohol, Blood Medical Stat Lab 10/07/24 21:45 Completed B-Type Natriuretic Peptide Stat Lab 10/07/24 21:45 Completed CBC Stat Lab 10/07/24 21:45 Completed Comprehensive Metabolic Panel Stat Lab 10/07/24 21:45 Completed Drug Screen,Urine Stat Lab 10/07/24 22:28 Completed Lipase Stat Lab 10/07/24 21:45 Completed Magnesium Stat Lab 10/07/24 21:45 Completed Partial Thromboplastin Time Stat Lab 10/07/24 21:45 Completed Prothrombin Time with INR Stat Lab 10/07/24 21:45 Completed Troponin I Stat Lab 10/07/24 21:45 Completed UA, C/S IF [Urinalysis, C/S if Indicated] Stat Lab 10/07/24 22:28 Completed Morphine Inj Med 10/07/24 22:07 Discontinued 5 mg IVP X1 ONE Ondansetron Inj [Zofran Inj] Med 10/07/24 22:07 Discontinued 4 mg IVP X1 ONE Vital Signs Vital signs: Vital Signs Temperature 98.0 F 10/07/24 21:45 Pulse Rate 99 10/07/24 21:45 Respiratory Rate 18 10/07/24 21:45 Blood Pressure 125/76 10/07/24 21:45 Pulse Oximetry (%) 97 10/07/24 21:45 Oxygen Delivery Method Room Air 10/07/24 21:45 Chest Pain MDM Narrative MDM Narrative:: Scribe Attestation: I, Leilani Carlton, am scribing for and in the presence of Dr. West. Provider Notation: Although this document has been carefully reviewed, there may still be some phonetic and other typographical errors.? These errors are purely grammatical due to imperfections in the software program and should not be construed in any way to? compromise the substance of the patient's medical care during this visit. Patient data External records reviewed:: [facility] previous records (Reviewed prior ED records from 06/18/24. Patient was seen for Flank pain.) and EMS form Clinical information provided by:: patient and EMS Social determinants that could affect healthcare access:: none Patient has the following chronic illnesses:: Seizures, Coronary Artery Disease, Atherosclerotic Heart Disease, Hypercholesterolemia, Cardiomyopathy, Hypertension, Arthritis, Fibromyalgia, Diabetes Mellitus Type 2, Schizophrenia, Depression and Anxiety How is presenting disease/condition affected by chronic disease/condition?: exacerbated by Evaluation data The following diagnostics were reviewed and interpreted by me:: lab results, radiology exam(s) and EKG tracing(s) (EKG manual reading, my interpretation: sinus tachycardia, Q-waves in II, III and AVF, no ischemic changes.) Lab and/or radiology exams considered but not ordered:: None Interpretation Summary: RADIOLOGY Chest X-Ray: Chest x-ray, 2V, indication: chest pain, my interpretation: Rotated, no infiltrates, sternotomy wires, and port inspiration. Patient: SAMIA JEROME. Record#: [id number] Birthdate: 1965 Age/Sex: 59 / M Location: [facility] Attending Dr: Ordering Physician: Halie West MD Date of Service: 10/07/24 Procedure(s): XR chest 1V portable Accession Number(s): [id number] cc: Etienne Fernando MD; Armin Funk MD; Halie West MD~ Examination: AP chest single view Technique AP portable sitting chest single view Date and time: October 07, 2024 at 2153 hours INDICATIONS: Chest pain and shortness of breath beginning today. FINDINGS: Mild enlargement cardiac contour CABG No pneumonia or pulmonary edema Moderate osteopenia IMPRESSION: No pneumonia or pulmonary edema Dictated By: Armin Funk MD Signed By: <Electronically signed by Armin Funk MD in OV> 10/07/24 2206 Medications / Prescriptions Medications or Prescriptions considered but not ordered:: None Medication administrations:: Medication Administration History Discontinued Medications Morphine Sulfate (Morphine Sulf Inj 10 Mg/Ml Vial) 5 mg IVP X1 ONE Stop: 10/07/24 22:08 Last Admin: 10/07/24 22:34 Dose: 5 mg Documented By: BRANDON Ondansetron HCl (Ondansetron Inj 2 Mg/Ml Inj 2 Ml) 4 mg IVP X1 ONE Stop: 10/07/24 22:08 Last Admin: 10/07/24 22:34 Dose: 4 mg Documented By: BRANDON See above if any Consultations Consultation(s) initiated? (list below): No Diagnosis Chest Pain Differential Diagnosis: pneumothorax, stable angina, unstable angina pectoris, atypical chest pain, st elevation myocardial infarction, costochondritis, chest pain and biliary colic Most likely diagnosis given after review of the tests above:: Chest pain Admission Indicated Admission indicated?: not indicated Explain why admission is indicated or not indicated:: Patient walked out. Admission Request Was there a request for admission?: No Disposition Plan Disposition Plan: other (specify) (Patient eloped.) Discharge Plan Plan Patient Disposition: Elopement Prescriptions/Referrals Prescriptions/Med Rec: No Action Janumet 50-1,000 mg Tablet 50 mg PO BID atorvastatin 40 mg Tablet 40 mg PO QDAY fluconazole 200 mg Tablet 200 mg PO QDAY gabapentin 400 mg Capsule 400 mg PO TID clonazepam 1 mg Tablet 1 mg PO BID phenytoin sodium extended 100 mg Capsule 100 mg PO BID pentoxifylline 400 mg Tablet Extended Release 400 mg PO TID baclofen 20 mg Tablet 20 mg PO TID propranolol 10 mg Tablet 10 mg PO BID oxycodone-acetaminophen 10-325 mg Tablet 1 tab PO DAILY PRN (Reason: Pain) divalproex 500 mg Tablet Extended Release 24 Hr 500 mg PO QDAY zaleplon 10 mg Capsule 10 mg PO QDAY aripiprazole 30 mg Tablet 30 mg PO QDAY duloxetine 60 mg Capsule,Delayed Release(Dr/Ec) 60 mg PO QDAY aspirin [Aspir-Low] 81 mg Tablet,Delayed Release (Dr/Ec) 81 mg PO QDAY Qty: 30 0RF acyclovir 800 mg Tablet 800 mg PO TID Qty: 28 0RF Levemir FlexTouch U100 Insulin 100 unit/mL (3 mL) Insulin Pen 30 unit SUBCUT QPM Qty: 0 0RF acetaminophen-codeine 300-30 mg tablet 2 tab PO TID MDD 6 PRN (Reason: pain) Qty: 20 0RF Referrals: Etienne Fernando MD [Primary Care Provider] - In 1 week Problem List Clinical Impression: Chest pain Patient/Caregiver Discharge Instructions Print Language: Lithuanian
[2024-10-07 21:45] VITALS: BP 125/76; PULSE 99; RESP 18; TEMP 36.7; O2SAT 97
[2024-10-07 21:54] VITALS: PULSE 95
[2024-10-07 21:56] LABS: Basophils % (Auto) 0 % (0-2.5); Eosinophils # (Auto) 0.1 Thou/mm3 (0.0-0.5); Eosinophils % (Auto) 1 % (0-10); Hematocrit 34.8 % (41.0-53.0); Hemoglobin 12.8 g/dL (13.5-16.0); Immature Granulocytes % (Auto) 1 % (0-0); Immature Granulocytes Auto 0.05 Thou/mm3 (0.00-0.00); Lymphocytes # (Auto) 2.4 Thou/mm3 (1.0-4.8); Lymphocytes % (Auto) 30 % (10-50); Mean Corpuscular HGB Conc 36.8 g/dl (31.0-37.0); Mean Corpuscular Hemoglobin 28.4 pg (25.0-35.0); Mean Corpuscular Volume 77 fL (80-100); Monocytes # (Auto) 0.7 Thou/mm3 (0.0-0.8); Monocytes % (Auto) 9 % (0-12); Neutrophils # (Auto) 4.8 Thou/mm3 (1.8-7.7); Neutrophils % (Auto) 59 % (37-80); Nucleated Red Blood Cell % 0 /100 WBC (0); Platelet Count 274 Thou/mm3 (140-440); RDW Standard Deviation 36.1 fL (35.1-43.9); Red Blood Count 4.51 Miln/mm3 (4.50-5.90); White Blood Count 8.1 Thou/mm3 (3.8-10.6)
[2024-10-07 22:11] LABS: Partial Thromboplastin Time 26.8 Seconds (22.0-36.0); Prothrombin Time 10.9 Seconds (9.0-12.2)
[2024-10-07 22:12] LABS: B-Type Natriuretic Peptide 21 pg/mL (0-100)
[2024-10-07 22:16] LABS: Alanine Aminotransferase 26 U/L (10-49); Albumin, Serum 4.3 gm/dL (3.5-5.0); Albumin/Globulin Ratio 1.9 (1.2-2.2); Alcohol, Blood Medical < 3.0 mg/dL (0-10.0); Alkaline Phosphatase 73 U/L (46-116); Anion Gap 9 (7-16); Aspartate Amino Transferase 24 U/L (0-34); BUN/Creatinine Ratio 13 Ratio (12-20); Blood Urea Nitrogen 16 mg/dL (9-23); Calcium 9.3 mg/dL (8.3-10.6); Calcium (Corrected) 9.3 mg/dL (8.5-10.1); Carbon Dioxide 25.7 mMol/L (20.0-31.0); Chloride 98 mMol/L (98-107); Creatinine (Component) 1.2 mg/dL (0.6-1.3); Estimated Creatinine Clearance 64.9 mL/min (>60); Globulin 2.3 gm/dL (2.3-3.5); Glucose 287 mg/dL (74-106); Glucose Estimated Average 315 mg/dL (80-131); Hemoglobin A1C 12.6 % Hgb (4.8-6.0); Lipase 54 U/L (12-53); Magnesium 1.7 mg/dL (1.6-2.6); Osmolality,Calculated 277 (275-295); Sodium 133 mMol/L (136-145); Total Protein 6.6 gm/dL (5.7-8.2); Troponin I < 0.020 ng/mL (0.0-0.045); eGFR > 60 See Note
[2024-10-07] MEDS: MORPHINE SULF INJ 10 MG/ML VIAL 5 MG IVP (22:34)
[2024-10-07] MEDS: ONDANSETRON INJ 2 MG/ML INJ 2 ML 4 MG IVP (22:34)
[2024-10-07 22:35] LABS: Collection Type, Urine Clean Catch; RBC,Urine 0 /hpf (0-3); Squamous Epithelial Cell,Urine 0 /hpf (0-5); WBC,Urine 0 /hpf (0-5)
[2024-10-07 23:11] LABS: Amphetamine/Methamp Scrn,U Negative (Negative); Barbiturate Screen,Urine Negative (Negative); Benzodiazepines Screen,Urine Negative (Negative); Benzoylecgonine Screen, Ur Negative (Negative); Fentanyl Screen,Urine Negative (Negative); Opiate Screen,Urine Negative (Negative); THC Screen,Urine Negative (Negative)
[2024-10-07 23:24] LABS: Bilirubin,Urine Negative (Negative); Blood,Urine Negative (Negative); Clarity,Urine Clear (Clear/Hazy); Color,Urine Colorless (Lt Yel-Yel); Culture Indicated,Urine Not Indicated; Glucose, Urine 4+ (Negative); Ketones,Urine Negative (Negative); Leukocyte Esterase,Urine Negative (Negative); Nitrite,Urine Negative (Negative); PH,Urine 6.5 (5.0-7.0); Protein,Urine Negative (Neg - Trace); Urobilinogen,Urine Negative mg/dL (0.0-1.0)
--- NOTE | 2024-10-07 23:27 | PC.LAC ---
Nurse noticed patient walking down [address]. Patient went to bathroom to check on patient and patient was not in the bathroom. Nurse checked with security and security verified that a patient wearing a green shirt and khaki cargo shorts had indeed walked out the front door approximately 5 minutes ago. Nurse called patients cell phone to ask patient if he left. patient stated he did leave and he was not coming back. Nurse instructed patient that he needed to come have his iv removed or we would have to notify PD. Patient again stated he would not come back. PD was called and notified about the patients elopement and refusal to come back to have his IV removed. Charge nurse notified.
--- NOTE | 2024-10-07 23:36 | PC.NURSE ---
Officer Aliya Meredith from PD came by and stated that he called the patient and the patient is refusing to give them his location. Per PD the patient stated the hospital was trying to kill him and he needed to leave. Per PD they asked him to also come back just so we could remove the IV, the patient again said no. Patient stated that once he got tired he would eventually go home. Per PD they did not see the patient in the area and they will stop by his home later tonight.
== END 2024-10-07 23:26 | disposition left against medical advice (07) ==
PROVIDERS: Emergency Provider Emergency Medicine; PCP Family Medicine
DX: R07.9 Chest pain, unspecified (principal); R06.02 Shortness of breath; E78.00 Pure hypercholesterolemia, unspecified; I25.10 Atherosclerotic heart disease of native coronary artery without angina pectoris; I10 Essential (primary) hypertension; I42.9 Cardiomyopathy, unspecified
CPT/HCPCS: 36415; 71045; 80053; 80307; 80320; 81001; 83036; 83690; 83735; 83880; 84484; 85025; 85610; 85730; 93005; 96374; 96375; 99284; J2270; J2405; G0480

== ENCOUNTER 2024-11-04 09:47 | Emergency (ER) | payer MEDICARE, MEDICAID, SELFPAY ==
[2024-11-04 10:10] VITALS: BP 129/81; PULSE 113; RESP 18; TEMP 36.6; O2SAT 99; BMI 27.6
--- NOTE | 2024-11-04 11:31 | PD.EDDEPRS ---
ED Psych RME/HPI General Chief Complaint: Depression Stated Complaint: Depressed, wants cimbalta refilled Time Seen by Provider: 11/04/24 11:30 Source: patient and family Arrival date/time: 11/04/24 09:47 Mode of arrival: ambulatory Limitations: no limitations RME / HPI RME / HPI Narrative: Requesting medication refill, patient ran out of his [facility]. complaint: feels depressed Onset (ago): day(s) Duration: constant Related Data Home Medications ?Medication ?Instructions ?Recorded ?Confirmed sitagliptin phosphate 50 50 mg PO BID 04/04/18 02/21/21 mg-metformin 1,000 mg tablet (Janumet) aripiprazole 30 mg tablet 30 mg PO QDAY 06/06/18 02/21/21 atorvastatin 40 mg tablet 40 mg PO QDAY 06/06/18 05/26/19 baclofen 20 mg tablet 20 mg PO TID 06/06/18 05/26/19 clonazepam 1 mg tablet 1 mg PO BID 06/06/18 05/26/19 divalproex 500 mg tablet,extended 500 mg PO QDAY 06/06/18 02/21/21 release 24 hr duloxetine 60 mg capsule,delayed 60 mg PO QDAY 06/06/18 02/03/20 release fluconazole 200 mg tablet 200 mg PO QDAY 06/06/18 05/26/19 gabapentin 400 mg capsule 400 mg PO TID 06/06/18 02/03/20 oxycodone-acetaminophen 10 mg-325 1 tab PO DAILY PRN Pain 06/06/18 05/26/19 mg tablet pentoxifylline 400 mg 400 mg PO TID 06/06/18 05/26/19 tablet,extended release phenytoin sodium extended 100 mg 100 mg PO BID 06/06/18 05/26/19 capsule propranolol 10 mg tablet 10 mg PO BID 06/06/18 02/03/20 zaleplon 10 mg capsule 10 mg PO QDAY 06/06/18 05/26/19 Previous Rx's ?Medication ?Instructions ?Recorded acyclovir 800 mg tablet 800 mg PO TID #28 tabs 05/29/19 aspirin 81 mg tablet,delayed 81 mg PO QDAY #30 tabs 05/29/19 release (Aspir-Low) insulin detemir U-100 100 unit/mL 30 unit (0.3 mL) subcut QPM #0 mL 05/29/19 (3 mL) subcutaneous pen (Levemir FlexTouch U-100 Insulin) acetaminophen 300 mg-codeine 30 mg 2 tab PO TID PRN pain #20 tabs 04/10/24 tablet duloxetine 60 mg capsule,delayed 60 mg PO QDAY #10 caps 11/04/24 release Allergies Allergy/AdvReac Type Severity Reaction Status Date / Time No Known Allergies Allergy Verified 11/04/24 09:50 Review of Systems Constitutional Constitutional: Reports system reviewed and no additional complaints, except as documented Eyes Eyes: Reports system reviewed and no additional complaints, except as documented, Denies dry eyes, Denies exophthalmos and Reports floaters Cardiovascular Cardiovascular: Denies chest pain with activity and Denies claudication ED Exam General Limitations: Present no limitations General appearance: Present alert and in no apparent distress Head Head exam: Present atraumatic Eye Eye exam: Present normal appearance and EOMI ENT ENT exam: Present normal exam, normal oropharynx and mucous membranes moist Neck Neck exam: Present normal inspection, full ROM and trachea midline Extremities Exam Extremities exam: Present normal inspection and full ROM Back Exam Back exam: Present normal inspection and full ROM Neurological Exam Neurological exam: Present alert and oriented X3 Psychiatric Psychiatric exam: Present normal affect and normal mood Skin Skin exam: Present warm, dry, intact and normal color Course Course Course Narrative: I will refill his Cymbalta up to 10 days. Quality Measures none Vital Signs Vital signs: Vital Signs Temperature 97.9 F 11/04/24 10:10 Pulse Rate 113 H 11/04/24 10:10 Respiratory Rate 18 11/04/24 10:10 Blood Pressure 129/81 11/04/24 10:10 Pulse Oximetry (%) 99 11/04/24 10:10 Oxygen Delivery Method Room Air 11/04/24 10:10 Pulse ox is 99% room air Psych MDM Narrative MDM Narrative:: Patient will have his Cymbalta refilled. He will also have 1 [place] for his aches and pains. He will be discharged in no apparent distress and he is to follow-up this coming Saturday with his doctor as discussed. Patient data External records reviewed:: Other (specify) Clinical information provided by:: none Social determinants that could affect healthcare access:: none Patient has the following chronic illnesses:: NA How is presenting disease/condition affected by chronic disease/condition?: exacerbated by (Exhausted his present medication for his depression.) Evaluation data The following diagnostics were reviewed and interpreted by me:: other (specify) (NA) Lab and/or radiology exams considered but not ordered:: NA Interpretation Summary: NA Medications / Prescriptions Medications or Prescriptions considered but not ordered:: NA Medication administrations:: NORCO Consultations Consultation(s) initiated? (list below): No Consultation #1 (Physician, Specialty, Details): NA Diagnosis Psych Differential Diagnosis: acute psychosis, chronic schizophrenia, suicidal ideation, bipolar disorder and depression Most likely diagnosis given after review of the tests above:: NA Admission Indicated Admission indicated?: not indicated Explain why admission is indicated or not indicated:: NA Admission Request Was there a request for admission?: No Admission Attestation Admission request attestation: NA Disposition Plan Disposition Plan: Discharge Discharge Attestation Discharge Attestation: The patient and all family members were given an opportunity to ask questions and understood the discharge instructions. Discharge instructions specifically effects, indications for sooner follow up or return to the emergency department, and the expected course of current diagnosis. Patient condition: Stable Discharge Plan Plan Patient Disposition: HOME (Self Care) Discharge Disposition comment: Patient discharged in no apparent distress Patient condition on transfer: Stable Prescriptions/Referrals Prescriptions/Med Rec: New duloxetine 60 mg capsule,delayed release(DR/EC) 60 mg PO QDAY Qty: 10 0RF No Action Janumet 50-1,000 mg Tablet 50 mg PO BID atorvastatin 40 mg Tablet 40 mg PO QDAY fluconazole 200 mg Tablet 200 mg PO QDAY gabapentin 400 mg Capsule 400 mg PO TID clonazepam 1 mg Tablet 1 mg PO BID phenytoin sodium extended 100 mg Capsule 100 mg PO BID pentoxifylline 400 mg Tablet Extended Release 400 mg PO TID baclofen 20 mg Tablet 20 mg PO TID propranolol 10 mg Tablet 10 mg PO BID oxycodone-acetaminophen 10-325 mg Tablet 1 tab PO DAILY PRN (Reason: Pain) divalproex 500 mg Tablet Extended Release 24 Hr 500 mg PO QDAY zaleplon 10 mg Capsule 10 mg PO QDAY aripiprazole 30 mg Tablet 30 mg PO QDAY duloxetine 60 mg Capsule,Delayed Release(Dr/Ec) 60 mg PO QDAY aspirin [Aspir-Low] 81 mg Tablet,Delayed Release (Dr/Ec) 81 mg PO QDAY Qty: 30 0RF acyclovir 800 mg Tablet 800 mg PO TID Qty: 28 0RF Levemir FlexTouch U100 Insulin 100 unit/mL (3 mL) Insulin Pen 30 unit SUBCUT QPM Qty: 0 0RF acetaminophen-codeine 300-30 mg tablet 2 tab PO TID MDD 6 PRN (Reason: pain) Qty: 20 0RF Problem List Clinical Impression: Encounter for medication refill Patient/Caregiver Discharge Instructions Discharge Activity: activity as tolerated Print Language: Georgian Stand Alone Forms: Mini Award Info., Patient Portal Info Letter PA/RETENTION MANAGER Supervising Physician PA/RETENTION MANAGER Supervising Physician: RICARDO
== END 2024-11-04 11:48 | disposition home or self-care (01) ==
LOC: SERX 11:54
PROVIDERS: Emergency Provider Physician Assistant
DX: Z76.0 Encounter for issue of repeat prescription (principal); F32.A Depression, unspecified
CPT/HCPCS: 99282; A9270

== ENCOUNTER 2025-02-07 20:11 | Emergency (ER) | payer MEDICARE, MEDICAID, SELFPAY ==
[2025-02-07 20:12] VITALS: BMI 27.3
[2025-02-07 20:25] VITALS: BP 135/80; PULSE 108; RESP 20; TEMP 36.9; O2SAT 97
--- NOTE | 2025-02-07 20:53 | XR_ITS ---
EXAMINATION: Bilateral wrist 4 views TECHNIQUE: AP lateral right and left wrist 4 views INDICATIONS: Patient fell 2 weeks ago with injury both wrist, bilateral wrist pain. FINDINGS: Soft tissue vascular calcification No fracture or dislocation involving either wrist IMPRESSION: No fracture or dislocation involving either wrist
--- NOTE | 2025-02-07 20:53 | XR_ITS ---
Examination: Bilateral hands, 6 views. Technique: AP, Oblique, Lateral each hand total 6 views Date and time of exam: February 07, 2025, 2050 hours INDICATIONS: Patient fell 2 weeks ago with injury to both hands, bilateral hand pain FINDINGS: Old bone density at the interphalangeal joint left fifth digit No acute fracture involving either hand No foreign bodies No dislocations IMPRESSION: No acute fracture involving either hand
--- NOTE | 2025-02-07 20:53 | XR_ITS ---
Examination: CT brain head without contrast. 2-D sagittal coronal reconstructions Date and time of exam: February 08, 2020 5:10 p.m. INDICATIONS: Headache after falling today with injury to the head, head pain CTDI: vol (mGy): 52 DLP: (mGycm): 1053 Technique: Multiple CT axial sections of the brain have been obtained, 5 mm slice thickness. Contrast has not been administered. 2-D sagittal, coronal reconstructions have been obtained Low dose protocols were performed. One or more of the following dose reduction techniques were used; automated exposure control, adjustment of the mA and/or KV according to patient size, use of iterative reconstruction technique. Findings: No significant ventricular enlargement. Intra-axial or extra-axial hemorrhage density is not seen. No mass effect or midline shift Basal cisterns are not remarkable. Fourth ventricle is midline. Cranial vault intact. Impression: Negative for acute hemorrhage, mass effect or midline shift
--- NOTE | 2025-02-07 20:54 | PD.EDRME ---
Rapid Medical Screening Exam RME Arrival date/time: 02/07/25 20:11 This is a case of 59-year-old male with history of MS on Plavix came in in the emergency room due to fall 2 weeks ago now with pain on both wrist and both hands possible head injury Chief Complaint: Extremity Injury, Upper Time Seen by Provider: 02/07/25 20:53 Vital signs: Vital Signs Temperature 98.4 F 02/07/25 20:25 Pulse Rate 108 H 02/07/25 20:25 Respiratory Rate 20 02/07/25 20:25 Blood Pressure 135/80 H 02/07/25 20:25 Pulse Oximetry (%) 97 02/07/25 20:25 Oxygen Delivery Method Room Air 02/07/25 20:25 Exam: Awake alert oriented x 4 moderate tenderness both hands and both wrists ROM intact Clinical Impression: Fall
--- NOTE | 2025-02-07 22:29 | PD.EDADULT ---
ED General RME/HPI General Chief complaint: Extremity Injury, Upper Stated complaint: URIAH. HAND PAIN, R. ARM PAIN Time Seen by Provider: 02/07/25 20:53 Arrival date/time: 02/07/25 20:11 CC: Headache, bilateral wrist pain HPI patient fell 2 weeks ago while walking tripped forward landing on his wrist and has had pain in these wrists and head since then patient denies loss of consciousness of altered level of consciousness. Patient is on Plavix for heart attack. No other complaints. RME / HPI RME / HPI narrative: 02/07/25 20:11 This is a case of 59-year-old male with history of AL on Plavix came in in the emergency room due to fall 2 weeks ago now with pain on both wrist and both hands possible head injury Exam: Awake alert oriented x 4 moderate tenderness both hands and both wrists ROM intact Impression: Fall Related Data Home Medications ?Medication ?Instructions ?Recorded ?Confirmed sitagliptin phosphate 50 50 mg PO BID 04/04/18 02/21/21 mg-metformin 1,000 mg tablet (Heathumenatalya) aripiprazole 30 mg tablet 30 mg PO QDAY 06/06/18 02/21/21 atorvastatin 40 mg tablet 40 mg PO QDAY 06/06/18 05/26/19 baclofen 20 mg tablet 20 mg PO TID 06/06/18 05/26/19 clonazepam 1 mg tablet 1 mg PO BID 06/06/18 05/26/19 divalproex 500 mg tablet,extended 500 mg PO QDAY 06/06/18 02/21/21 release 24 hr duloxetine 60 mg capsule,delayed 60 mg PO QDAY 06/06/18 02/03/20 release fluconazole 200 mg tablet 200 mg PO QDAY 06/06/18 05/26/19 gabapentin 400 mg capsule 400 mg PO TID 06/06/18 02/03/20 oxycodone-acetaminophen 10 mg-325 1 tab PO DAILY PRN Pain 06/06/18 05/26/19 mg tablet pentoxifylline 400 mg 400 mg PO TID 06/06/18 05/26/19 tablet,extended release phenytoin sodium extended 100 mg 100 mg PO BID 06/06/18 05/26/19 capsule propranolol 10 mg tablet 10 mg PO BID 06/06/18 02/03/20 zaleplon 10 mg capsule 10 mg PO QDAY 06/06/18 05/26/19 Previous Rx's ?Medication ?Instructions ?Recorded acyclovir 800 mg tablet 800 mg PO TID #28 tabs 05/29/19 aspirin 81 mg tablet,delayed 81 mg PO QDAY #30 tabs 05/29/19 release (Aspir-Low) insulin detemir U-100 100 unit/mL 30 unit (0.3 mL) subcut QPM #0 mL 05/29/19 (3 mL) subcutaneous pen (Levemir FlexTouch U-100 Insulin) acetaminophen 300 mg-codeine 30 mg 2 tab PO TID PRN pain #20 tabs 04/10/24 tablet duloxetine 60 mg capsule,delayed 60 mg PO QDAY #10 caps 11/04/24 release meloxicam 7.5 mg tablet 7.5 mg PO QDAY #10 tabs 02/07/25 Allergies Allergy/AdvReac Type Severity Reaction Status Date / Time No Known Allergies Allergy Verified 02/07/25 20:12 Review of Systems Review of Systems Narrative Review of Systems: GEN: No fever, no chills, no weight loss EYES: No discharge, no visual changes, no pain HEENT: No ear pain, no congestion, no sore throat PULM: No shortness of breath, no cough, no congestion CV: No chest pain, no dyspnea on exertion, no palpitations GI: No nausea, no vomiting, no diarrhea, no pain, no constipation : No frequency, no urgency, no dysuria MUSC/SKEL: + joint pain, no back pain SKIN: No rash PSYCH: No hallucinations, no depression HEME/LYMPH: No easy bleeding or bruising tendencies NEURO: No weakness, no headache Past Medical History Past Medical History NEUROLOGIC: Positive Neurological Disorders and Seizures CARDIAC: Positive Cardiac Disorders, Myocardial Infarction, Coronary Artery Disease, Atherosclerotic Heart Disease, Hypercholesterolemia, Cardiomyopathy and Hypertension; Negative Congestive Heart Failure RESPIRATORY: Positive Pneumonia; Negative Chronic Obstructive Pulmonary Disease (COPD) or Asthma GASTROINTESTINAL: Negative Gastrointestinal Disorders GENITOURINARY: Negative Genitourinary Disorders or Renal Disease MUSCULOSKELETAL: Positive Musculoskeletal Disorders, Arthritis and Fibromyalgia ENDOCRINE: Positive Endocrine Disorders and Diabetes Mellitus Type 2; Negative Diabetes Mellitus Type 1 HEMATOLOGIC: Negative Blood Disorders or Sickle Cell Disease PSYCHO/SOCIAL: Positive Schizophrenia, Depression and Anxiety OTHER HISTORY: Positive Chicken Pox; Negative Blood Transfusions Family History FAMILY HISTORY: Positive Family Cardiac Disorders Surgical History SURGICAL: Positive Open Heart Surgery, Coronary Artery Bypass Graft, Coronary Stent and Cardiac Catheterization Social History SMOKING STATUS: Never smoker SUBSTANCE USE: does not use ED Exam Narrative Physical exam: [General: In mild discomfort but not in any acute distress Head normocephalic no step-offs hematoma induration ulceration or depressions. HEENT: Within acceptable limits Neck is supple nontender Chest equal chest rise nontender to palpation Respiratory: Clear to auscultation no wheezes crackles or rubs CV: Rate rhythm is regular no murmurs rubs or clicks Abdomen is soft nontender no masses positive bowel sounds all 4 quadrants Back: No CVA tenderness no spinous process tenderness from cervical spine thoracic and lumbar spine Skin: Intact no petechiae rash induration ulceration or crepitus Extremities: Decreased range of motion of the wrist secondary to pain no edema erythema or exudate full extension of the fingers flexion extension cap refill in the digits less than 2 seconds neurosensory intact. Moving all extremity against resistance cap refill less than 2 seconds neurosensory intact Neuro: Awake alert oriented x3 Glascow coma 15 no focal deficits] Course Quality Measures none Orders Category Date Time Status CT head/brain wo con Stat Exams 02/07/25 20:53 Completed XR hand BI 2V Stat Exams 02/07/25 20:53 Completed XR wrist BI 2V Stat Exams 02/07/25 20:53 Completed Ketorolac Inj [Toradol Inj] Med 02/07/25 22:28 Once 30 mg IM X1 ONE Vital Signs Vital signs: Vital Signs Temperature 98.4 F 02/07/25 20:25 Pulse Rate 108 H 02/07/25 20:25 Respiratory Rate 20 02/07/25 20:25 Blood Pressure 135/80 H 02/07/25 20:25 Pulse Oximetry (%) 97 02/07/25 20:25 Oxygen Delivery Method Room Air 02/07/25 20:25 Discharge Plan Plan Patient Disposition: HOME (Self Care) Patient condition on transfer: Stable Prescriptions/Referrals Prescriptions/Med Rec: New meloxicam 7.5 mg tablet 7.5 mg PO QDAY Qty: 10 0RF No Action Janumet 50-1,000 mg Tablet 50 mg PO BID atorvastatin 40 mg Tablet 40 mg PO QDAY fluconazole 200 mg Tablet 200 mg PO QDAY gabapentin 400 mg Capsule 400 mg PO TID clonazepam 1 mg Tablet 1 mg PO BID phenytoin sodium extended 100 mg Capsule 100 mg PO BID pentoxifylline 400 mg Tablet Extended Release 400 mg PO TID baclofen 20 mg Tablet 20 mg PO TID propranolol 10 mg Tablet 10 mg PO BID oxycodone-acetaminophen 10-325 mg Tablet 1 tab PO DAILY PRN (Reason: Pain) divalproex 500 mg Tablet Extended Release 24 Hr 500 mg PO QDAY zaleplon 10 mg Capsule 10 mg PO QDAY aripiprazole 30 mg Tablet 30 mg PO QDAY duloxetine 60 mg Capsule,Delayed Release(Dr/Ec) 60 mg PO QDAY aspirin [Aspir-Low] 81 mg Tablet,Delayed Release (Dr/Ec) 81 mg PO QDAY Qty: 30 0RF acyclovir 800 mg Tablet 800 mg PO TID Qty: 28 0RF Levemir FlexTouch U100 Insulin 100 unit/mL (3 mL) Insulin Pen 30 unit SUBCUT QPM Qty: 0 0RF acetaminophen-codeine 300-30 mg tablet 2 tab PO TID MDD 6 PRN (Reason: pain) Qty: 20 0RF duloxetine 60 mg capsule,delayed release(DR/EC) 60 mg PO QDAY Qty: 10 0RF Referrals: Etienne Fernando MD [Primary Care Provider, Family Practice] - In 1 week Problem List Clinical Impression: Fall, Headache, Contusion of multiple sites of hand and wrist Patient/Caregiver Discharge Instructions Education Materials: Bruises (Contusions), ED Hand Contusion, ED Fall with Uncertain Cause Additional Instructions: Take the medication as prescribed do not take Advil or ibuprofen along with this medication. Follow-up with your primary care doctor. Print Language: Hungarian Stand Alone Forms: Mini Award Info., Patient Portal Info Letter, Work/School Release PA/WATER MAIN INSPECTOR Supervising Physician PA/WATER MAIN INSPECTOR Supervising Physician: Roque LOPEZP [place] Clinical Information Provided by: patient Medical Records reviewed [facility] Meds/Rx considered, not ordered None Labs/Rad/Tests considered, not ordered None Chronic Illness/Social Conditions Explain: AL on Plavix EKG EKG not done Labs Labs: none Imaging Imaging interpretation: interpreted by me Imaging Interpretation(s): CT of the head is negative for any acute finding. Emergent or immediate intervention Wrist x-ray showed no fracture as interpreted by me and read by radiology Medication Administration(s) none Medication Administration History Ketorolac Tromethamine (Ketorolac Inj 30 Mg/Ml Vial) 30 mg IM X1 ONE Stop: 02/07/25 22:29 Diagnosis Differential Diagnosis ED Complaint MDM: Wrist fracture closed head injury ground-level fall
[2025-02-07] MEDS: KETOROLAC INJ 30 MG/ML VIAL IM (22:39)
== END 2025-02-07 22:48 | disposition home or self-care (01) ==
PROVIDERS: Emergency Provider Emergency Medicine; PCP Family Medicine
DX: S60.229A Contusion of unspecified hand, initial encounter (principal); Y92.238 Other place in hospital as the place of occurrence of the external cause; W01.0XXA Fall on same level from slipping, tripping and stumbling without subsequent striking against object, initial encounter; Z79.84 Long term (current) use of oral hypoglycemic drugs
CPT/HCPCS: 70450; 73100; 73120; 99282; J1885

== ENCOUNTER 2025-03-29 13:52 | Inpatient (IN) | payer MEDICARE, MEDICAID, SELFPAY ==
[2025-03-29] VITALS (12 sets, daily range): BP systolic 118–135; BP diastolic 70–84; PULSE 96–112; RESP 15–20; TEMP 36.3–37.1; O2SAT 98–100
--- NOTE | 2025-03-29 14:17 | EKG_ITS ---
[facility] Test Date: 2025-03-29 Pat Name: SAMIA JEROME Department: Room: - Gender: Male Head Chef: : 1965 Requested By: Umair Wharton Order Number: [id number] Reading MD: Umair Wharton Measurements Intervals [place] Rate: 110 P: 54 LA: 125 QRS: -26 QRSD: 114 T: -20 QT: 341 QTc: 462 Interpretive Statements SINUS TACHYCARDIA POSSIBLE RIGHT VENTRICULAR CONDUCTION DELAY [RSR (QR) IN V1/V2] ANTEROLATERAL MYOCARDIAL INFARCTION , OF INDETERMINATE AGE [40+ ms Q WAVE IN I/aVL/V3-V6] Compared to ECG 10/07/2024 21:40:49 Sinus rhythm no longer present Myocardial infarct finding still present /store/S0/[id number].pdf
--- NOTE | 2025-03-29 14:17 | XR_ITS ---
EXAMINATION: AP chest single view TECHNIQUE: AP upright portable chest single view Date and time: March 29, 2025, 1333 hours INDICATIONS: Chest pain weakness today. FINDINGS: Mild prominence left ventricle. CABG Moderate vascular congestion. No lobar pneumonia or pulmonary edema IMPRESSION: Moderate vascular congestion
--- NOTE | 2025-03-29 14:17 | PD.EDRME ---
Rapid Medical Screening Exam RME Arrival date/time: 03/29/25 13:52 59-year-old male with a history of type 2 diabetes, hyperlipidemia, CAD, CVA, presents to the emergency room with a chief complaint of 10 out of 10 sternal chest pain x 1 day I have greeted and performed a focused initial assessment of this patient. A comprehensive ED assessment and evaluation of the patient, analysis of all test results, and completion of the medical decision making process will be conducted by additional ED providers. Chief Complaint: Weakness Time Seen by Provider: 03/29/25 14:13 Vital signs: Vital Signs Temperature 98.7 F 03/29/25 14:09 Pulse Rate 112 H 03/29/25 14:09 Respiratory Rate 20 03/29/25 14:09 Blood Pressure 131/80 H 03/29/25 14:09 Pulse Oximetry (%) 100 03/29/25 14:09 Oxygen Delivery Method Room Air 03/29/25 14:09 Vital signs reviewed by provider: Yes Exam: Strong and regular rhythm S1 and S2 noted Clear bilateral lung sounds Clinical Impression: STEMI/NSTEMI/chest pain
[2025-03-29 15:36] LABS: Basophils # (Auto) 0.0 Thou/mm3 (0.0-0.2); Basophils % (Auto) 0 % (0-2.5); Eosinophils # (Auto) 0.0 Thou/mm3 (0.0-0.5); Eosinophils % (Auto) 0 % (0-10); Hematocrit 46.8 % (41.0-53.0); Hemoglobin 15.3 g/dL (13.5-16.0); Immature Granulocytes Auto 0.07 Thou/mm3 (0.00-0.00); Lymphocytes # (Auto) 1.4 Thou/mm3 (1.0-4.8); Lymphocytes % (Auto) 13 % (10-50); Mean Corpuscular HGB Conc 32.7 g/dl (31.0-37.0); Mean Corpuscular Hemoglobin 27.7 pg (25.0-35.0); Mean Corpuscular Volume 85 fL (80-100); Monocytes # (Auto) 0.6 Thou/mm3 (0.0-0.8); Monocytes % (Auto) 5 % (0-12); Neutrophils # (Auto) 8.8 Thou/mm3 (1.8-7.7); Neutrophils % (Auto) 81 % (37-80); Nucleated Red Blood Cell # 0.00 Thou/mm3 (0.00-0.00); Nucleated Red Blood Cell % 0 /100 WBC (0); Platelet Count 335 Thou/mm3 (140-440); RDW Standard Deviation 39.5 fL (35.1-43.9); Red Blood Count 5.53 Miln/mm3 (4.50-5.90); White Blood Count 10.8 Thou/mm3 (3.8-10.6)
[2025-03-29 15:49] LABS: INR 1.0 (0.9-1.3); Partial Thromboplastin Time 30.2 Seconds (22.0-36.0); Prothrombin Time 10.2 Seconds (9.0-12.2)
[2025-03-29 15:51] LABS: B-Type Natriuretic Peptide < 20 pg/mL (0-100)
[2025-03-29 15:58] LABS: Alanine Aminotransferase 27 U/L (10-49); Albumin, Serum 5.0 gm/dL (3.5-5.0); Albumin/Globulin Ratio 1.6 (1.2-2.2); Alkaline Phosphatase 106 U/L (46-116); Anion Gap 24 (7-16); Aspartate Amino Transferase 22 U/L (0-34); BUN/Creatinine Ratio 16 Ratio (12-20); Bilirubin,Total 1.1 mg/dL (0.3-1.2); Blood Urea Nitrogen 22 mg/dL (9-23); Calcium 9.4 mg/dL (8.3-10.6); Calcium (Corrected) 9.4 mg/dL (8.5-10.1); Chloride 99 mMol/L (98-107); Creatinine (Component) 1.4 mg/dL (0.6-1.3); Free T4 (Free Thyroxine) 1.33 ng/dL (0.89-1.76); Globulin 3.1 gm/dL (2.3-3.5); Glucose 262 mg/dL (74-106); Lipase 39 U/L (12-53); Magnesium 2.1 mg/dL (1.6-2.6); Osmolality,Calculated 278 (275-295); Potassium 4.7 mMol/L (3.4-5.1); Sodium 133 mMol/L (136-145); Thyroid Stimulating Hormone 0.53 uIU/mL (0.55-4.78); Total Protein 8.1 gm/dL (5.7-8.2); Troponin I < 0.020 ng/mL (0.0-0.045); eGFR 58 See Note
[2025-03-29 16:07] LABS: Carbon Dioxide < 10.0 mMol/L (20.0-31.0)
--- NOTE | 2025-03-29 16:24 | EDNOTE_ITS ---
<Statement entered by Halie West MD - 03/31/25 17:44> I, Halie West MD, have reviewed the history, exam, and assessment of the patient. I have evaluated the patient independently and agree with the plan of care documented by [ ]. All diagnostic studies were reviewed and discussed. I confirm the diagnosis as documented by the Resident. I was present during the Medical Decision Making for this patient. The patient's plan of care was created between myself and the Resident and consistent with our discussion of the patient's case. ED General RME/HPI General Chief complaint: Weakness Stated complaint: WEAKNESS, CONFUSED/DISORIENTED, PINS/NEEDLES IN HT Time Seen by Provider: 03/29/25 14:13 Arrival date/time: 03/29/25 13:52 RME / HPI RME / HPI narrative: 03/29/25 13:52 59-year-old male with a history of type 2 diabetes, hyperlipidemia, CAD, CVA, presents to the emergency room with a chief complaint of 10 out of 10 sternal chest pain x 1 day I have greeted and performed a focused initial assessment of this patient. A comprehensive ED assessment and evaluation of the patient, analysis of all test results, and completion of the medical decision making process will be conducted by additional ED providers. Exam: Strong and regular rhythm S1 and S2 noted Clear bilateral lung sounds Impression: STEMI/NSTEMI/chest pain Related Data Home Medications ?Medication ?Instructions ?Recorded ?Confirmed sitagliptin phosphate 50 50 mg PO BID 04/04/18 mg-metformin 1,000 mg tablet (Janumet) aripiprazole 30 mg tablet 30 mg PO QDAY 06/06/1802/21 atorvastatin 40 mg tablet 40 mg PO QDAY 06/06/1805/26 baclofen 20 mg tablet 20 mg PO TID 06/06/18 clonazepam 1 mg tablet 1 mg PO BID 06/06/18 0 divalproex 500 mg tablet,extended 500 mg PO QDAY 06/0602/21/21 release 24 hr duloxetine 60 mg capsule,delayed 60 mg PO QDAY 9 02/03/20 release fluconazole 200 mg tablet 200 mg PO QDAY 06/06/1805/16 gabapentin 400 mg capsule 400 mg PO TID 06/06/1802/02 oxycodone-acetaminophen 10 mg-325 1 tab PO DAILY PRN P ain 06/06/18 05/26/19 mg tablet pentoxifylline 400 mg 400 mg PO TID 06/06/1805/26 tablet,extended release phenytoin sodium extended 100 mg 100 mg PO BID 9 05/26/19 capsule propranolol 10 mg tablet 10 mg PO BID 06/06/18 zaleplon 10 mg capsule 10 mg PO QDAY 06/06/1805/26 Previous Rx's ?Medication ?Instructions ?Recorded acyclovir 800 mg tablet 800 mg PO TID #28 tabs 05/29 aspirin 81 mg tablet,delayed 81 mg PO QDAY #30 tabs release (Aspir-Low) insulin detemir U-100 100 unit/mL 30 unit (0.3 mL) sub cut QPM #0 mL 05/29/19 (3 mL) subcutaneous pen (Levemir FlexTouch U-100 Insulin) acetaminophen 300 mg-codeine 30 mg 2 tab PO TID PRN pa in #20 tabs 04/10/24 tablet duloxetine 60 mg capsule,delayed 60 mg PO QDAY #10 cap s 11/04/24 release meloxicam 7.5 mg tablet 7.5 mg PO QDAY #10 tabs 01/14 10/07 Allergies Allergy/AdvReac Type Severity Reaction Status Date / Time No Known Allergies Allergy Verified 03/29/25 13:59 ED Exam Narrative Physical exam: Physical Exam: GENERAL: Awake, answering questions appropriately in Arabic and Samoan, appears stated age HEENT: NC/AT. Dry mucosa. PERRLA/EOMI. CARDIO: Tachycardic, no obvious murmurs, no JVD. PULM: No coughing or visible SOB. Lungs CTA B/L. GI: Abdomen soft, mildly tender to palpation diffusely without any guarding, rebound tenderness or rigidity noted. Borborygmi apparent SKIN/MSK/EXT: Thoracotomy site evident. Hyperpigmentation with discoloration of upper extremities. No wounds/rashes/edema/amputations. +Pedal pulses present B/L. NEURO: Oriented x3, Moves extremities x4, no focal neurologic deficits noted Course Quality Measures none Orders Category Date Time Status Admit to Inpatient Status Routine Admission 03/29/25 17:58 Active Patient Condition Routine Admission 03/29/25 17:57 Ordered Bedside Blood Glucose Q1HR Care 03/29/25 18:00 Active Bedside Blood Glucose STAT Care 03/29/25 17:05 Active COVID-19 Screening Questionnaire NOW Care 03/29/25 17:32 Active Counter Installer STAT Care 03/29/25 17:05 Active DKA Protocol QSHIFT Care 03/29/25 17:05 Active Decision to Admit X1 Care 03/29/25 17:32 Completed EKG (ED ONLY) *Do not use* NOW Care 03/29/25 14:17 Completed Insert IV NOW Care 03/29/25 16:22 Active Insert IV NOW Care 03/29/25 17:05 Completed Intake and Output Routine Care 03/29/25 17:05 Ordered NPO NOW Care 03/29/25 17:59 Active Notify provider NEEDED Care 03/29/25 17:05 Active Referral Registered Dietitian Routine Cons 03/29/25 17:05 Active Diet NPO (NOW) Diet 03/29/25 17:59 Active EKG (ED Only) Stat Exams 03/29/25 14:17 Draft XR chest 1V portable Stat Exams 03/29/25 14:17 Completed ABG [Arterial Blood Gas] Urgent Lab 03/29/25 21:00 Ordered B-Type Natriuretic Peptide Stat Lab 03/29/25 15:02 Completed Beta Hydroxybutyrate AM DRAW Lab 03/30/25 05:00 Ordered Beta Hydroxybutyrate Stat Lab 03/29/25 16:32 Completed Blood Culture (Lab) Stat Lab 03/29/25 17:05 Ordered CBC Stat Lab 03/29/25 15:02 Completed Comprehensive Metabolic Panel Stat Lab 03/29/25 15:02 Completed Drug Screen,Urine Stat Lab 03/29/25 15:50 Completed Free T4 (Free Thyroxine) Stat Lab 03/29/25 15:02 Completed Lactic Acid [Lactate (Lactic Acid)] Stat Lab 03/29/25 17:43 Ordered Lipase Stat Lab 03/29/25 15:02 Completed Magnesium Q4H Lab 03/29/25 18:00 Ordered Magnesium Q4H Lab 03/29/25 21:58 Ordered Magnesium Q4H Lab 03/30/25 02:00 Ordered Magnesium Q4H Lab 03/30/25 06:00 Ordered Magnesium Q4H Lab 03/30/25 10:00 Ordered Magnesium Q4H Lab 03/30/25 14:00 Ordered Magnesium Q4H Lab 03/30/25 18:00 Ordered Magnesium Q4H Lab 03/30/25 22:00 Ordered Magnesium Q4H Lab 03/31/25 02:00 Ordered Magnesium Q4H Lab 03/31/25 06:00 Ordered Magnesium Stat Lab 03/29/25 15:02 Completed Magnesium Stat Lab 03/29/25 17:59 Ordered Partial Thromboplastin Time Stat Lab 03/29/25 15:02 Completed Prothrombin Time with INR Stat Lab 03/29/25 15:02 Completed Renal Function Panel Q4 Lab 03/29/25 17:28 Ordered Renal Function Panel Q4 Lab 03/29/25 21:58 Ordered Renal Function Panel Q4 Lab 03/30/25 01:58 Ordered Renal Function Panel Q4 Lab 03/30/25 05:58 Ordered Renal Function Panel Q4 Lab 03/30/25 09:58 Ordered Renal Function Panel Q4 Lab 03/30/25 13:58 Ordered Renal Function Panel Q4 Lab 03/30/25 17:58 Ordered Renal Function Panel Q4 Lab 03/30/25 21:58 Ordered Renal Function Panel Q4 Lab 03/31/25 01:58 Ordered Renal Function Panel Q4 Lab 03/31/25 05:58 Ordered TSH [Thyroid Stimulating Hormone] Stat Lab 03/29/25 15:02 Completed Troponin I Stat Lab 03/29/25 15:02 Completed Troponin I Stat Lab 03/29/25 17:28 Ordered Urinalysis, C/S if Indicated Stat Lab 03/29/25 15:50 Completed VBG [Venous Blood Gas] Stat Lab 03/29/25 16:32 Completed Dextrose 5%-Lactated Ringers [D5-Lr] 1,000 ml Med 03/29/25 17:05 Active Pot Chl Additive [KCl Additive] 20 meq IV 250 mls/hr Dextrose 5%-Lactated Ringers [D5-Lr] 1,000 ml Med 03/29/25 17:05 Active Pot Chl Additive [KCl Additive] 40 meq IV 250 mls/hr Dextrose 50% Syr [D50w Syringe Abboject] Med 03/29/25 17:05 Active 25 ml IV PRNMRX1 PRN Magnesium Sulfate 2 GM Ivpb [Magnesium Sulfate Ivpb] Med 03/29/25 17:05 D iscontinued 2 gm in 50 ml IV 25 mls/hr Magnesium Sulfate 2 GM Ivpb [Magnesium Sulfate Ivpb] Med 03/29/25 17:58 Ordered 2 gm in 50 ml IV 25 mls/hr Ondansetron Inj [Zofran Inj] Med 03/29/25 18:00 Ordered 4 mg IVP Q6HR PRN POT PHOS 15 mMol in NS 250 ML [Pot Phos 15 mMol in NS Med 03/29/25 17:05 Discontinued 250 ml] 15 mmol in 250 ml IV PRN POT PHOS 15 mMol in NS 250 ML [Pot Phos 15 mMol in NS Med 03/29/25 17:58 Ordered 250 ml] 15 mmol in 250 ml IV PRN POTASSIUM CHL 10 mEq IVPB [Kcl Ivpb] Med 03/29/25 17:05 Active 10 meq in 100 ml IV 100 mls/hr POTASSIUM CHL 10 mEq IVPB [Kcl Ivpb] [facility] 03/29/25 17:05 Active 10 meq in 100 ml IV PRN Pre-Mixed [Pre-mixed Bag] 1 bag Med 03/29/25 17:05 Active Insulin Reg 100 Units/100 ml [Myxredlin] 100 unit IV 0.1 unit/kg/hr Ringers Lactated 1000 ml [Lactated Ringers] 1,000 ml Med 03/29/25 17:05 Active Pot Chl Additive [KCl Additive] 20 meq IV 250 mls/hr Ringers Lactated 1000 ml [Lactated Ringers] 1,000 ml Med 03/29/25 17:05 Active Pot Chl Additive [KCl Additive] 40 meq IV 250 mls/hr Ringers Lactated 1000 ml [Lactated Ringers] 1,000 ml Med 03/29/25 17:05 Active IV 250 mls/hr Ringers Lactated 1000 ml [Lactated Ringers] 1,000 ml Med 03/29/25 16:24 Active IV 500 mls/hr Ringers Lactated 1000 ml [Lactated Ringers] 1,000 ml Med 03/29/25 17:15 Active IV Q1H Sodium Bicarb 8.4% 50ml Vial* Med 03/29/25 16:22 Discontinued 50 meq IV X1 ONE Sodium Bicarb 8.4% SYR Med 03/29/25 17:05 Active 50 ml IV Q4HR PRN Sodium Chloride 0.9% 250 ml [Ns] 250 ml Med 03/29/25 17:05 Active Sod Phos Additive [NaPhos Additive] 15 mmol IV 62.5 mls/hr Code Status Routine Oth 03/29/25 17:57 Ordered Vital Signs Vital signs: Vital Signs Temperature 98.7 F 03/29/25 14:09 Pulse Rate 112 H 03/29/25 14:09 Respiratory Rate 20 03/29/25 14:09 Blood Pressure 131/80 H 03/29/25 14:09 Pulse Oximetry (%) 100 03/29/25 14:09 Oxygen Delivery Method Room Air 03/29/25 14:09 Discharge Plan Plan Patient Disposition: Admit Acute Care w/in Hospital Patient condition on transfer: Stable Prescriptions/Referrals Prescriptions/Med Rec: No Action Janumet 50-1,000 mg Tablet 50 mg PO BID atorvastatin 40 mg Tablet 40 mg PO QDAY fluconazole 200 mg Tablet 200 mg PO QDAY gabapentin 400 mg Capsule 400 mg PO TID clonazepam 1 mg Tablet 1 mg PO BID phenytoin sodium extended 100 mg Capsule 100 mg PO BID pentoxifylline 400 mg Tablet Extended Release 400 mg PO TID baclofen 20 mg Tablet 20 mg PO TID propranolol 10 mg Tablet 10 mg PO BID oxycodone-acetaminophen 10-325 mg Tablet 1 tab PO DAILY PRN (Reason: Pain) divalproex 500 mg Tablet Extended Release 24 Hr 500 mg PO QDAY zaleplon 10 mg Capsule 10 mg PO QDAY aripiprazole 30 mg Tablet 30 mg PO QDAY duloxetine 60 mg Capsule,Delayed Release(Dr/Ec) 60 mg PO QDAY aspirin [Aspir-Low] 81 mg Tablet,Delayed Release (Dr/Ec) 81 mg PO QDAY Qty: 30 0RF acyclovir 800 mg Tablet 800 mg PO TID Qty: 28 0RF Levemir FlexTouch U100 Insulin 100 unit/mL (3 mL) Insulin Pen 30 unit SUBCUT QPM Qty: 0 0RF acetaminophen-codeine 300-30 mg tablet 2 tab PO TID MDD 6 PRN (Reason: pain) Qty: 20 0RF duloxetine 60 mg capsule,delayed release(DR/EC) 60 mg PO QDAY Qty: 10 0RF meloxicam 7.5 mg tablet 7.5 mg PO QDAY Qty: 10 0RF Referrals: Etienne Fernando MD [Primary Care Provider, [facility]] - In 1 week Problem List Clinical Impression: DKA, type 2 Patient/Caregiver Discharge Instructions Print Language: Arabic Stand Alone Forms: Mini Award Info., Patient Portal Info Letter MDM Narrative MDM hospital course (for use when minimal MDM required): HPI: 59-year-old male with past medical history of significant coronary artery disease status post PCI with stent placement, CABG bypass surgery by Dr. Coto, type 2 insulin-dependent diabetes, depression, seizure disorder presenting to the ER on 03/29 for generalized weakness. Patient states that for the past 3 days he has not been able to fill his insulin at the pharmacy. He notes generalized weakness and difficulty ambulating at home with increased urination. He has elevated thirst levels and has been drinking a lot of water as well due to the increased level of urination. He also notes some sharp chest pain in the fourth intercostal mid-clavicular space on the left with some radiation to the left arm. He denies having any shortness of breath, palpitations, lower extremity edema and denies having any history of heart failure or taking medic ations for it. On examination, please refer to the physical exam above; patient presented mildly hypertensive 131/80 with tachycardia heart rate of 112, respiratory of 20, afebrile satting 100 on room air. Pertinent lab findings included WBC of 10.8, no anemia, VBG showed pH of 7.10, pCO2 of 32, CMP with a sodium 133, carbon dioxide less than 10, anion gap of 24, creatinine 1.4, eGFR 58, glucose of 262, T. bili 1.1, LFTs within normal limits, troponin initially at less than 0.020 and BNP of less than 20. Beta hydroxybutyrate greater than 6.4 with urinalysis showing glucosuria and ketonuria. Urinalysis not show any signs of infection at this time. Chest x-ray does show moderate vascular congestion with mild prominence in left ventricle and EKG shows sinus tachycardia with some possible pathological Q waves. #DKA As noted above in HPI, patient has been without insulin for about 3 days Usually uses long-acting insulin 20 units in the morning and 20 units in the evening 1 amp of bicarb given Plan: Infectious workup largely unremarkable with UA being negative, chest x-ray showing no pneumonia; blood cultures ordered 2 large-bore IVs 2 L LR initiated DKA protocol with electrolyte replacement Called ICU admitting team for admission #Significant history of CAD #History of CABG Initial troponin within normal notes Plan: Repeat troponin EKG does show some pathological Q waves likely from old [place] Patient seen and assessed with attending Dr. Brett Calvo, DO PGY-2 Internal Medicine - [facility] Medication Administration(s) Medication Administration History Dextrose (Dextrose 50%-Water Inj 50 Ml Syringe) 25 ml IV PRNMRX1 PRN PRN Reason: Blood Sugar - Low Lactated Ringer's (Lactated Ringers) 1,000 mls @ 500 mls/hr IV .Q2H ONE Stop: 03/29/25 18:23 Last Admin: 03/29/25 17:42 Dose: Not Given Documented By: JESS Non-Admin Reason: Cancelled by Provider Potassium Chloride 20 meq/ (Dextrose/Lactated Ringer's) 1,010 mls @ 250 mls/hr IV .Q4H3M PRN PRN Reason: K LEVEL 3.3 TO 5.3 mM/L Stop: 04/28/25 17:04 Potassium Chloride 40 meq/ (Dextrose/Lactated Ringer's) 1,020 mls @ 250 mls/hr IV .Q4H5M PRN PRN Reason: K LEVEL < 3.3mM/L Stop: 04/28/25 17:04 Potassium Chloride (Kcl Ivpb) 10 meq in 100 mls @ 100 mls/hr IV .Q1H PRN PRN Reason: IF POTASSIUM LESS THAN 3.3 Stop: 04/28/25 17:04 Insulin Human Regular 100 unit (/ IV Miscellaneous Supplies) 100 mls @ 8.528 mls/hr IV .[id number] PRN; Protocol PRN Reason: PER PROTOCOL Stop: 04/28/25 17:04 Last Admin: 03/29/25 17:45 Dose: 0.1 unit/kg/hr, 8.528 mls/hr Documented By: JESS Co-signed By: FRANNY Lactated Ringer's (Lactated Ringers) 1,000 mls @ 250 mls/hr IV .Q4H PRN PRN Reason: PER PROTOCOL Stop: 03/30/25 17:04 Potassium Chloride 20 meq/ (Lactated Ringer's) 1,010 mls @ 250 mls/hr IV .Q4H3M PRN PRN Reason: K LEVEL 3.3 TO 5.3mM/L Stop: 04/28/25 17:04 Potassium Chloride 40 meq/ (Lactated Ringer's) 1,020 mls @ 250 mls/hr IV .Q4H5M PRN PRN Reason: K LEVEL < 3.3 mM/L Stop: 04/28/25 17:04 Potassium Chloride (Kcl Ivpb) 10 meq in 100 mls @ 50 mls/hr IV PRN PRN PRN Reason: K LEVEL 3.3 to 5.3 & BG > 200 Stop: 04/28/25 17:04 Sodium Phosphate 15 mmol/ (Sodium Chloride) 255 mls @ 62.5 mls/hr IV .Q4H5M PRN PRN Reason: Phosphate <= 1mg/dL and K> than 5.3 Stop: 04/28/25 17:04 Lactated Ringer's (Lactated Ringers) 1,000 mls @ 1,000 mls/hr IV Q1H ALLIE Stop: 03/29/25 19:14 Last Admin: 03/29/25 17:41 Dose: 1,000 mls/hr Documented By: VG Potassium Phosphate (Pot Phos 15 Mmol In Ns 250 Ml) 15 mmol in 250 mls @ 62.5 mls/hr IV PRN PRN PRN Reason: Phosphate <= 2mg/dL Stop: 04/28/25 17:04 Magnesium Sulfate (Magnesium Sulfate Ivpb) 2 gm in 50 mls @ 25 mls/hr IV .Q2H PRN PRN Reason: PER DKA PROTOCOL Stop: 04/28/25 17:04 Ondansetron HCl (Ondansetron Inj 2 Mg/Ml Inj 2 Ml) 4 mg IVP Q6HR PRN; Protocol PRN Reason: NAUSEA OR VOMITING Stop: 04/28/25 17:59 Sodium Bicarbonate (Sodium Bicarb Inj 8.4% Syr 50 Ml Syringe) 50 ml IV Q4HR PRN PRN Reason: For ph <= to 7.0 Stop: 04/28/25 17:04 Discontinued Medications Magnesium Sulfate (Magnesium Sulfate Ivpb) 2 gm in 50 mls @ 25 mls/hr IV .Q2H PRN PRN Reason: PER DKA PROTOCOL Stop: 04/28/25 17:04 Potassium Phosphate (Pot Phos 15 Mmol In Ns 250 Ml) 15 mmol in 250 mls @ 62.5 mls/hr IV PRN PRN PRN Reason: Phosphate <= 1mg/dL Stop: 04/28/25 17:04 Sodium Bicarbonate (Sodium Bicarb Inj 8.4% 1 Meq/Ml 50 Ml Vial) 50 meq IV X1 ONE Stop: 03/29/25 16:23 Last Admin: 03/29/25 17:42 Dose: 50 meq Documented By: VG
[2025-03-29 16:35] LABS: Collection Type, Urine Clean Catch; Squamous Epithelial Cell,Urine 0 /hpf (0-5)
[2025-03-29 16:52] LABS: Base Excess, Venous -19 (-3-3); O2 Saturation, Venous 75 % (96-97); PCO2, Venous 32 mmHg (36-56); PO2, Venous 46 mmHg (15-58); pH, Venous 7.10 (7.33-7.66)
[2025-03-29 16:58] LABS: Amphetamine/Methamp Scrn,U Negative (Negative); Barbiturate Screen,Urine Negative (Negative); Benzodiazepines Screen,Urine Negative (Negative); Benzoylecgonine Screen, Ur Negative (Negative); Fentanyl Screen,Urine Negative (Negative); Opiate Screen,Urine Negative (Negative); THC Screen,Urine Negative (Negative)
[2025-03-29 17:03] LABS: Beta Hydroxybutyrate > 6.4 mmol/L (<0.6)
--- NOTE | 2025-03-29 17:03 | PC.NURSE ---
CALL FROM GHAZALA IN LAB W/ PT'S BETA HYDROXY >6.4. PUT IN COMMENTS FOR MD TO SEE.
[2025-03-29 17:10] LABS: Amorphous Crystals,Urine Present (Absent); Bacteria,Urine Rare; Bilirubin,Urine Negative (Negative); Blood,Urine Negative (Negative); Clarity,Urine Clear (Clear/Hazy); Color,Urine Lt-Yellow (Lt Yel-Yel); Culture Indicated,Urine Not Indicated; Glucose, Urine 4+ (Negative); Ketones,Urine 4+ (Negative); Leukocyte Esterase,Urine Negative (Negative); Nitrite,Urine Negative (Negative); PH,Urine 5.5 (5.0-7.0); Protein,Urine Trace (Neg - Trace); RBC,Urine 1 /hpf (0-3); Specific Gravity,Urine 1.030 (1.001-1.035); Urobilinogen,Urine Negative mg/dL (0.0-1.0); WBC,Urine < 1 /hpf (0-5)
[2025-03-29] MEDS: RINGERS LACTATED 1000 ML 1,000 ML IV ×2 (17:41→18:42)
[2025-03-29] MEDS: SODIUM BICARB INJ 8.4% 1 mEq/ML 50 ML VIAL 50 MEQ IV (17:42)
[2025-03-29] MEDS: INSULIN REG 100 UNITS/100 ML 100 UNIT in PRE-MIXED 1 BAG 8.528 UNIT IV (17:45)
--- NOTE | 2025-03-29 18:22 | ESHP_ITS ---
<Statement entered by Danielle Chávez MD - 03/30/25 12:05> I reviewed the resident?s note and agree with findings and plan as documented in the resident?s note. <Statement entered by Adia Damian MD - 03/29/25 19:26> I have reviewed the note and agree with the resident's assessment & plan with exceptions as below. I have personally reviewed labs, imaging, home meds/prior records, examined the patient, formulated and discussed management plan with the IM team. Neurology #Hx of Seizures Resuming home seizure medicines Cardiology: #Hx of CAD s/p CABG Plan: Resume home ASA and Lipitor Pulmonary: #Tachypnea 2/2 compensatory respiratory alkalosis with DKA Treat underlying DKA Gastrointestinal: Stable Nephrology: #HAGMA #Ketoacidosis DDx: DKA, Lactic acidosis AG 24 Winter's Formula: 20-24 expected CO2 Delta-Delta: (24-12)/(24-9)= 0.8 -> Could be possible underlying NAGMA, however unlikely as we do not have accurate bicarbonate at this time Dx: CMP, CBC, Beta hydroxy, Lactic acid, VBG Rx: Insulin Drip protocol (see Endo), Lactated Ringers Boluses RRX: #Lactic Acidosis DDx: Type A vs B. Likely related B related to DKA Dx: CMP, CBC, Beta hydroxy, Lactic acid Rx: Lactic Acid q6h, treat underlying DKA (see Endo) RRX: If DKA is not treated Genitourinary: Stable Hematology: #Leukocytosis DDx: Reactive, Stress related, unlikely infection Dx: CBC Rx: Trend CBC RRX: If there is underlying infection not treated Endocrine: #DKA Pt reports that he has been out of insulin for 3 days. Beta hydroxy was 6.2, Bicarbonate below ten. Dx: Beta-Hydroxy, CMP, ABG, U/A, physical Exam Rx: Insulin Drip 0.1 unit/kg, Bedside Glucose q1h, F/u VBG, Renal Panel q4h, Potassium Replishment PRN, Lactated Ringers IV (2 L boluses given, however, unsure of heart function considering Hx of CABG , IVC does seem collapsible, room for additional fluid), NPO, A1c for AM draw. RRX: If not enough insulin is given Infectious Disease: Stable Skin: Stable Adia Damian, PGY-2 Internal Medicine Documentation for date of: 03/29/25 HPI History of Present Illness Chief complaint: 3 days of headache and malaise History of present illness: Mr. 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 he states that he went to the pharmacy to flower picker his insulin but they did not have a prescription there for him. ROS no diarrhea, no constipation, last bm yesterday, endorses vague abdominal pain and chest pain He states that his PCP is leandro at [facility] he lives at home with his daughter surgical history: cabg, and stents, and cholecystectomy ED Course: VS: notable for BP 130/80 and hr 112, rr 20, afebrile, satting well on RA. labs notable for vbg with ph 7.10, pco2 32, hco3 <10, wbc 10, betahydroxybuterate >6.4, lipase wnl, Cr 1.4 with baseline 0.8, Urine positive for glucose 4+ and ketones 4+, utox negative , finger glucose 230. imaging: ekg with sinus tachy. Tx LR 2 L Insulin drip initiated Bicarb given Exam Vital Signs Temp Pulse Resp BP Pulse Ox O2 Del Method 97.4 F 104 H 15 135/81 H 100 Room Air 03/29/25 18:16 03/29/25 18:16 03/29/25 18:16 03/29/25 18:16 03/29/25 18:16 03/29/25 18:16 Narrative Exam GENERAL: moderate distress, AAO x3, laying in bed HEENT: Head AT/ NC. Mucous membranes dry. PERRL. NECK: Supple, no lymphadenopathy, no carotid bruits. CARDIOVASCULAR: sinus tachycardia. Normal S1/S2, No m/r/g. No pitting edema of bilateral LEs. midline sternal scar from cabg RESPIRATORY: CTAB. No wheezing, rhonchi, crackles. GASTROINTESTINAL: Abdomen soft, vague lower abdominal tender no palpable masses. Bowel sounds present MUSCULOSKELETAL:? No cyanosis or edema, no visible joint swelling. NEUROLOGICAL: CN II-XII grossly intact. No focal deficits. Sensation intact, symmetric. PSYCHIATRIC: Awake and alert, not agitated, normal mood and affect. SKIN: No obvious rashes, no jaundice, normal turgor. Results: Labs 03/29/25 15:02 03/29/25 16:32 Labs: Short CBC 03/29/25 Range/Units 15:02 WBC 10.8 H (3.8-10.6) Thou/mm3 Hgb 15.3 (13.5-16.0) g/dL Hct 46.8 (41.0-53.0) % Plt Count 335 (140-440) Thou/mm3 BMP 03/29/25 15:02 Sodium 133 L Potassium 4.7 Chloride 99 Carbon Dioxide < 10.0 L* BUN 22 Creatinine 1.4 H Glucose 262 H Calcium 9.4 Cardiac Enzymes 03/29/25 Range/Units 15:02 Troponin I < 0.020 (0.0-0.045) ng/mL Liver Function 03/29/25 Range/Units 15:02 Total Bilirubin 1.1 (0.3-1.2) mg/dL AST 22 (0-34) U/L ALT 27 (10-49) U/L Alkaline Phosphatase 106 (46-116) U/L Albumin 5.0 (3.5-5.0) gm/dL Urine 03/29/25 Range/Units 15:50 Urine Color Lt-Yellow (Lt Yel-Yel) Urine Clarity Clear (Clear/Hazy) Urine pH 5.5 (5.0-7.0) Ur Specific [place] 1.030 (1.001-1.035) Urine Protein Trace (Neg - Trace) Urine Glucose (UA) 4+ A (Negative) ABG Interpretation ABG results: 03/29/25 16:32 VBG pH 7.10 L VBG pCO2 32 L VBG pO2 46 VBG Base Excess -19 L Quality Measures Quality Measures VTE prophylaxis Medications Home Medications and Allergies Home Medications ?Medication ?Instructions ?Recorded ?Confirmed ?Type sitagliptin phosphate 50 50 mg PO BID 04/04/18 History mg-metformin 1,000 mg tablet (Janumet) aripiprazole 30 mg tablet 30 mg PO QDAY 06/06/1802/21 History atorvastatin 40 mg tablet 40 mg PO QDAY 06/06/1805/26 History baclofen 20 mg tablet 20 mg PO TID 06/06/18 History clonazepam 1 mg tablet 1 mg PO BID 06/06/18 0 History divalproex 500 mg tablet,extended 500 mg PO QDAY 06/0602/21/21 History release 24 hr duloxetine 60 mg capsule,delayed 60 mg PO QDAY 9 02/03/20 History release fluconazole 200 mg tablet 200 mg PO QDAY 06/06/1805/16 History gabapentin 400 mg capsule 400 mg PO TID 06/06/1802/02 History oxycodone-acetaminophen 10 mg-325 1 tab PO DAILY PRN P ain 06/06/18 05/26/19 History mg tablet pentoxifylline 400 mg 400 mg PO TID 06/06/1805/26 History tablet,extended release phenytoin sodium extended 100 mg 100 mg PO BID 9 05/26/19 History capsule propranolol 10 mg tablet 10 mg PO BID 06/06/18 History zaleplon 10 mg capsule 10 mg PO QDAY 06/06/1805/26 History Allergies Allergy/AdvReac Type Severity Reaction Status Date / Time No Known Allergies Allergy Verified 03/29/25 13:59 Visit Medications Acetaminophen (Acetaminophen 325 Mg Tablet) 650 mg PO Q6HR PRN PRN Reason: fever > 100.4 , pain 1-3 Stop: 04/28/25 18:01 Dextrose (Dextrose 50%-Water Inj 50 Ml Syringe) 25 ml IV [id number] PRN PRN Reason: Blood Sugar - Low Lactated Ringer's (Lactated Ringers) 1,000 mls @ 500 mls/hr IV .Q2H ONE Stop: 03/29/25 18:23 Last Admin: 03/29/25 17:42 Dose: Not Given Potassium Chloride 20 meq/ (Dextrose/Lactated Ringer's) 1,010 mls @ 250 mls/hr IV .Q4H3M PRN PRN Reason: K LEVEL 3.3 TO 5.3 mM/L Stop: 04/28/25 17:04 Potassium Chloride 40 meq/ (Dextrose/Lactated Ringer's) 1,020 mls @ 250 mls/hr IV .Q4H5M PRN PRN Reason: K LEVEL < 3.3mM/L Stop: 04/28/25 17:04 Potassium Chloride (Kcl Ivpb) 10 meq in 100 mls @ 100 mls/hr IV .Q1H PRN PRN Reason: IF POTASSIUM LESS THAN 3.3 Stop: 04/28/25 17:04 Insulin Human Regular 100 unit (/ IV Miscellaneous Supplies) 100 mls @ 8.528 mls/hr IV .[id number] PRN; Protocol PRN Reason: PER PROTOCOL Stop: 04/28/25 17:04 Last Admin: 03/29/25 17:45 Dose: 0.1 unit/kg/hr, 8.528 mls/hr Lactated Ringer's (Lactated Ringers) 1,000 mls @ 250 mls/hr IV .Q4H PRN PRN Reason: PER PROTOCOL Stop: 03/30/25 17:04 Potassium Chloride 20 meq/ (Lactated Ringer's) 1,010 mls @ 250 mls/hr IV .Q4H3M PRN PRN Reason: K LEVEL 3.3 TO 5.3mM/L Stop: 04/28/25 17:04 Potassium Chloride 40 meq/ (Lactated Ringer's) 1,020 mls @ 250 mls/hr IV .Q4H5M PRN PRN Reason: K LEVEL < 3.3 mM/L Stop: 04/28/25 17:04 Potassium Chloride (Kcl Ivpb) 10 meq in 100 mls @ 50 mls/hr IV PRN PRN PRN Reason: K LEVEL 3.3 to 5.3 & BG > 200 Stop: 04/28/25 17:04 Sodium Phosphate 15 mmol/ (Sodium Chloride) 255 mls @ 62.5 mls/hr IV .Q4H5M PRN PRN Reason: Phosphate <= 1mg/dL and K> than 5.3 Stop: 04/28/25 17:04 Lactated Ringer's (Lactated Ringers) 1,000 mls @ 1,000 mls/hr IV Q1H ALLIE Stop: 03/29/25 19:14 Last Admin: 03/29/25 17:41 Dose: 1,000 mls/hr Potassium Phosphate (Pot Phos 15 Mmol In Ns 250 Ml) 15 mmol in 250 mls @ 62.5 mls/hr IV PRN PRN PRN Reason: Phosphate <= 2mg/dL Stop: 04/28/25 17:04 Magnesium Sulfate (Magnesium Sulfate Ivpb) 2 gm in 50 mls @ 25 mls/hr IV .Q2H PRN PRN Reason: PER DKA PROTOCOL Stop: 04/28/25 17:04 Ondansetron HCl (Ondansetron Inj 2 Mg/Ml Inj 2 Ml) 4 mg IVP Q6HR PRN; Protocol PRN Reason: NAUSEA OR VOMITING Stop: 04/28/25 17:59 Sodium Bicarbonate (Sodium Bicarb Inj 8.4% Syr 50 Ml Syringe) 50 ml IV Q4HR PRN PRN Reason: For ph <= to 7.0 Stop: 04/28/25 17:04 Discontinued Medications Magnesium Sulfate (Magnesium Sulfate Ivpb) 2 gm in 50 mls @ 25 mls/hr IV .Q2H PRN PRN Reason: PER DKA PROTOCOL Stop: 04/28/25 17:04 Potassium Phosphate (Pot Phos 15 Mmol In Ns 250 Ml) 15 mmol in 250 mls @ 62.5 mls/hr IV PRN PRN PRN Reason: Phosphate <= 1mg/dL Stop: 04/28/25 17:04 Sodium Bicarbonate (Sodium Bicarb Inj 8.4% 1 Meq/Ml 50 Ml Vial) 50 meq IV X1 ONE Stop: 03/29/25 16:23 Last Admin: 03/29/25 17:42 Dose: 50 meq Assessment & Plan Plan Mr. 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 Hx CVA - resume asa and plavix Hx Valley Fever with memory deficits - fluconazole 200 mg PO qd MDD CV Sinus Tachycardia Ddx s/s dka, vs pain 2/2 fibromyalgia Dx UA bland, with ketones, and Rx treat dka , treat pain with APAP and escalate if needed. CAD with stents and CABG home meds, aspirin - resume ASA HLD - home atorvastatin 40 qd Pulm Tachypnea 2/2 metabolic acidosis iso DKA Rx: cont treating dka GI no active problems , lipase wnl Renal Metabolic Acidosis 2/2 DKA and Lactic Acidosis Compensatory Respiratory Alkalosis Ddx DKA vs infection Dx betahydroxy butrate >6.4, glucose 200s, AG 24 (nl albumin), Ph 7.18, pco2 23, bicarb <10, Delta delta 24-12/24-10= <1 pure metablic acidosis, miranda formula 1.5 *10 +8 =+/-2= 21-25 expected CO2, so it is appropriately compensated. Rx Insulin drip per protocol , q1hr sugar checks, renal panel q4hr, lactic acid q8hr, AM betahydroxy buterate check, VBG at midnight, and AM VBG . given bicarb in the ED, OK for another dose of bicarb if repeat is <10. check for if the gap closes 2x and if betahydroxy resolves before transitioning to sub q long acting insulin . LOUISE Ddx prerenal vs intrarenal iso med toxicity Dx: patient takes several meds for his seizures and fibromyalgia, possible neurotoxicity Rx: received 2L bolus in the ED, cont fluids with dka protocol. Hyponatremia 133, corrected NA 136, Glucose 262. ENDO DKA Insulin dependent T2DM, poorly controlled Home meds, Janumet, levemir 30 qhs. Dx A1c pending, was previously poorly controlled at 12.6 in 09/2024, he states that he ran out of his insulin at home and tried to pick Rx see renal for plan with insulin drip and q4hr labs and sugar checks, given patient continues to have poor glycemic control, would benefit from diabetic education : Glucosuria Ketouria ddx in setting of dka and poorly controlled DM HEME no active problems. MSK Fibromyalgia - home meds, not yet confirmed, meloxicam, gabapentin, APAP-Codeine Skin no active problems Dispo:Admitted to ICU for DKA, on insulin drip Diet: NPO Lines: PIV VTE ppx: lovenox 30 sq GI ppx: famotidine 20 BID Bowel Reg: not indicated Code status: full code Case disclosed with my senior resident Dr. Damian and my Attending Dr. Kyler Hamm MD PGY1
[2025-03-29 18:32] LABS: Base Excess -18 (-3-3); HCO3 9 mEq/L (20-26); Inspired Oxygen, FIO2 21 %; O2 Saturation 97 % (91-98); PCO2 23 mmHg (32.0-48.0); PO2 118 mmHg (83-108)
[2025-03-29 18:32] LABS: Lactate (Lactic Acid) 2.6 mMol/L (0.4-2.0)
[2025-03-29 18:41] LABS: Puncture Site Left Radial; pH, Arterial 7.18 (7.35-7.45)
[2025-03-29 18:42] LABS: Allen Test Performed/OK
[2025-03-29 18:47] LABS: Albumin, Serum 5.2 gm/dL (3.5-5.0); Anion Gap 25 (7-16); BUN/Creatinine Ratio 20 Ratio (12-20); Blood Urea Nitrogen 26 mg/dL (9-23); Calcium 9.4 mg/dL (8.3-10.6); Calcium (Corrected) 9.4 mg/dL (8.5-10.1); Chloride 97 mMol/L (98-107); Creatinine (Component) 1.3 mg/dL (0.6-1.3); Glucose 237 mg/dL (74-106); Magnesium 2.4 mg/dL (1.6-2.6); Osmolality,Calculated 277 (275-295); Phosphorous 5.4 mg/dL (2.4-5.1); Potassium 4.6 mMol/L (3.4-5.1); Sodium 132 mMol/L (136-145); Troponin I < 0.020 ng/mL (0.0-0.045); eGFR > 60 See Note
[2025-03-29] MEDS: ACETAMINOPHEN 325 MG TABLET 650 MG PO (18:59)
[2025-03-29] MEDS: FAMOTIDINE INJ 10 MG/ML VIAL 2 ML 20 MG IVP (18:59)
[2025-03-29 19:24] LABS: Carbon Dioxide < 10.0 mMol/L (20.0-31.0)
[2025-03-29] MEDS: POT CHL ADDITIVE 20 MEQ in DEXTROSE 5%-LACTATED RINGERS 1,000 ML 250 MEQ IV (20:18)
[2025-03-29 21:25] LABS: Reflex Lactate? Y
[2025-03-29 22:28] LABS: Lactic Acid, 3 HR 1.2 mMol/L (0.4-2.0)
[2025-03-29 23:13] LABS: Albumin, Serum 4.3 gm/dL (3.5-5.0); Anion Gap 18 (7-16); BUN/Creatinine Ratio 20 Ratio (12-20); Blood Urea Nitrogen 20 mg/dL (9-23); Calcium 8.3 mg/dL (8.3-10.6); Calcium (Corrected) 8.3 mg/dL (8.5-10.1); Chloride 104 mMol/L (98-107); Creatinine (Component) 1.0 mg/dL (0.6-1.3); Glucose 141 mg/dL (74-106); Magnesium 1.9 mg/dL (1.6-2.6); Osmolality,Calculated 276 (275-295); Phosphorous 4.0 mg/dL (2.4-5.1); Potassium 4.5 mMol/L (3.4-5.1); Sodium 136 mMol/L (136-145); Troponin I < 0.020 ng/mL (0.0-0.045); eGFR > 60 See Note
[2025-03-29 23:16] LABS: Carbon Dioxide 14.2 mMol/L (20.0-31.0)
[2025-03-30] VITALS (15 sets, daily range): BP systolic 103–138; BP diastolic 61–86; PULSE 87–109; RESP 12–27; TEMP 36.1–36.8; O2SAT 94–99; BMI 26.9
[2025-03-30 00:17] LABS: Base Excess, Venous -11 (-3-3); O2 Saturation, Venous 56 % (96-97); PCO2, Venous 35 mmHg (36-56); PO2, Venous 29 mmHg (15-58); pH, Venous 7.25 (7.33-7.66)
[2025-03-30] MEDS: POT CHL ADDITIVE 20 MEQ in DEXTROSE 5%-LACTATED RINGERS 1,000 ML 250 MEQ IV ×2 (00:24→04:28)
[2025-03-30] MEDS: ACETAMINOPHEN 325 MG TABLET 650 MG PO (00:24)
[2025-03-30 03:03] LABS: Albumin, Serum 3.9 gm/dL (3.5-5.0); Anion Gap 12 (7-16); BUN/Creatinine Ratio 16 Ratio (12-20); Blood Urea Nitrogen 16 mg/dL (9-23); Calcium 8.0 mg/dL (8.3-10.6); Calcium (Corrected) 8.1 mg/dL (8.5-10.1); Carbon Dioxide 19.7 mMol/L (20.0-31.0); Chloride 106 mMol/L (98-107); Creatinine (Component) 1.0 mg/dL (0.6-1.3); Glucose 138 mg/dL (74-106); Magnesium 1.8 mg/dL (1.6-2.6); Osmolality,Calculated 278 (275-295); Phosphorous 2.6 mg/dL (2.4-5.1); Potassium 3.8 mMol/L (3.4-5.1); Sodium 138 mMol/L (136-145); eGFR > 60 See Note
[2025-03-30] MEDS: Magnesium Sulfate 2 GM Ivpb 2 GM/50 ML BAG IV (04:36)
[2025-03-30 06:10] LABS: Base Excess, Venous -3 (-3-3); O2 Saturation, Venous 98 % (96-97); PCO2, Venous 26 mmHg (36-56); PO2, Venous 143 mmHg (15-58); pH, Venous 7.47 (7.33-7.66)
[2025-03-30 06:11] LABS: Lactate (Lactic Acid) 1.0 mMol/L (0.4-2.0)
[2025-03-30 06:14] LABS: Basophils # (Auto) 0.0 Thou/mm3 (0.0-0.2); Basophils % (Auto) 0 % (0-2.5); Eosinophils # (Auto) 0.0 Thou/mm3 (0.0-0.5); Eosinophils % (Auto) 1 % (0-10); Hematocrit 35.9 % (41.0-53.0); Hemoglobin 12.5 g/dL (13.5-16.0); Immature Granulocytes Auto 0.04 Thou/mm3 (0.00-0.00); Lymphocytes # (Auto) 2.1 Thou/mm3 (1.0-4.8); Lymphocytes % (Auto) 30 % (10-50); Mean Corpuscular HGB Conc 34.8 g/dl (31.0-37.0); Mean Corpuscular Hemoglobin 28.0 pg (25.0-35.0); Mean Corpuscular Volume 81 fL (80-100); Monocytes # (Auto) 0.6 Thou/mm3 (0.0-0.8); Monocytes % (Auto) 9 % (0-12); Neutrophils # (Auto) 4.1 Thou/mm3 (1.8-7.7); Neutrophils % (Auto) 59 % (37-80); Nucleated Red Blood Cell # 0.00 Thou/mm3 (0.00-0.00); Nucleated Red Blood Cell % 0 /100 WBC (0); Platelet Count 293 Thou/mm3 (140-440); RDW Standard Deviation 36.9 fL (35.1-43.9); Red Blood Count 4.46 Miln/mm3 (4.50-5.90); White Blood Count 6.9 Thou/mm3 (3.8-10.6)
[2025-03-30 06:17] LABS: Beta Hydroxybutyrate 0.6 mmol/L (<0.6)
[2025-03-30 06:55] LABS: Albumin, Serum 3.7 gm/dL (3.5-5.0); Anion Gap 12 (7-16); BUN/Creatinine Ratio 14 Ratio (12-20); Blood Urea Nitrogen 13 mg/dL (9-23); Calcium 8.2 mg/dL (8.3-10.6); Calcium (Corrected) 8.4 mg/dL (8.5-10.1); Carbon Dioxide 20.2 mMol/L (20.0-31.0); Chloride 108 mMol/L (98-107); Creatinine (Component) 0.9 mg/dL (0.6-1.3); Glucose 137 mg/dL (74-106); Magnesium 2.3 mg/dL (1.6-2.6); Osmolality,Calculated 281 (275-295); Phosphorous 2.3 mg/dL (2.4-5.1); Potassium 3.8 mMol/L (3.4-5.1); Sodium 140 mMol/L (136-145); eGFR > 60 See Note
[2025-03-30 06:57] LABS: Glucose Estimated Average 312 mg/dL (80-131); Hemoglobin A1C 12.5 % Hgb (4.8-6.0)
[2025-03-30 07:41] LABS: INR 1.0 (0.9-1.3); Partial Thromboplastin Time 25.1 Seconds (22.0-36.0); Prothrombin Time 10.3 Seconds (9.0-12.2)
[2025-03-30] MEDS: FAMOTIDINE INJ 10 MG/ML VIAL 2 ML 20 MG IVP ×2 (07:54→21:16)
[2025-03-30] MEDS: INSULIN DEGLUDEC 5 UNIT/0.05 ML (PER 5 UNITS) 20 UNIT SC (07:55)
[2025-03-30] MEDS: ENOXAPARIN SOD INJ 30 MG/0.3 ML SYRINGE SC (07:55)
[2025-03-30] MEDS: NAPH,KPH MBDB 1 PACKET (1.5 GM) PO (07:56)
[2025-03-30] MEDS: ASPIRIN EC 81 MG TABEC PO (07:56)
[2025-03-30] MEDS: INSULIN DEGLUDEC 5 UNIT/0.05 ML (PER 5 UNITS) SC (10:25)
[2025-03-30 10:44] LABS: Albumin, Serum 3.8 gm/dL (3.5-5.0); Anion Gap 10 (7-16); BUN/Creatinine Ratio 13 Ratio (12-20); Blood Urea Nitrogen 10 mg/dL (9-23); Calcium 8.1 mg/dL (8.3-10.6); Calcium (Corrected) 8.3 mg/dL (8.5-10.1); Carbon Dioxide 20.9 mMol/L (20.0-31.0); Chloride 108 mMol/L (98-107); Creatinine (Component) 0.8 mg/dL (0.6-1.3); Estimated Creatinine Clearance 97.4 mL/min (>60); Glucose 150 mg/dL (74-106); Magnesium 2.2 mg/dL (1.6-2.6); Osmolality,Calculated 279 (275-295); Phosphorous 2.4 mg/dL (2.4-5.1); Potassium 4.0 mMol/L (3.4-5.1); Sodium 139 mMol/L (136-145); eGFR > 60 See Note
[2025-03-30] MEDS: DULoxetine HCL 30 MG CAPSULE 60 MG PO (10:53)
[2025-03-30] MEDS: INSULIN LISPRO (AdmeLOG) 1 UNIT/0.01 ML UNIT SC (11:56)
[2025-03-30] MEDS: INSULIN LISPRO (AdmeLOG) 1 UNIT/0.01 ML UNIT 5 UNIT SC ×2 (11:56→17:37)
--- NOTE | 2025-03-30 11:56 | ESPR_ITS ---
<Statement entered by Danielle Chávez MD - 03/31/25 12:12> TOTAL CC TIME: 45 MIN I saw and evaluated the patient. I reviewed the resident?s note and agree with findings and plan as documented in the resident?s note. Upon my evaluation, this patient had a high probability of imminent or life- threatening deterioration due to DKA, which required my direct attention, intervention, and personal management. This time is exclusive of time spent on procedures, which are documented separately if performed. Management with insulin drip, aggressive IV fluids, electrolyte replacement spent as appropriate transition off insulin drip when appropriate. Nausea vomiting abdominal pain is improving. Patient has generalized pain that he attributes from fibromyalgia; restart home meds. No evidence of sepsis <Statement entered by Adia Dmaian MD - 03/30/25 17:37> I have reviewed the note and agree with the resident's assessment & plan with exceptions as below. I have personally reviewed labs, imaging, home meds/prior records, examined the patient, formulated and discussed management plan with the IM team. Patient examined at bedside today. No acute overnight events. It appears patient used 33 units of insulin during duration of drip. The hours between the anion gap closing the first time and second time showed an avg insulin usage of 2 units (8 units* 6= 48 units. It was then planned to give half of patient's insulin requirement on drip. Patient transition from Insulin drip to Tresiba 30 units, and short acting 5 units with meals, and sliding scale. Patient received 2 bags of D5 LR. Patient's anion gap has resolved patient to ketoacidosis, lactic acidosis and DKA. Patient medically cleared for downgrade with hospitalist team. Hospitalist team will need to speak with patient if he still takes Plavix as this may be related to his CABG history. #Hx of Seizures #Hx of CAD s/p CABG #Tachypnea, resolved #HAGMA, resolved #Ketoacidosis, resolved #Lactic Acidosis, resolved #Leukocytosis #DKA, resolved Adia Damian, PGY-2 Internal Medicine Documentation for date of: 03/30/25 Subjective Subjective Interval history: Mr. 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 he states that he went to the pharmacy to scrap picker his insulin but they did not have a prescription there for him. 03/30/2025: Patient seen and examined at bedside, he reports feeling much better. transitioned off the insulin drip in the AM, started on sliding scale and degludec. patient was downgraded from the ICU. Exam Vital Signs Temp Pulse Resp BP Pulse Ox O2 Del Method 98.2 F 100 17 123/73 99 Room Air 03/30/25 11:55 03/30/25 11:55 03/30/25 11:55 03/30/25 11:55 03/30/25 11:55 03/30/25 11:55 Narrative Exam GENERAL: moderate distress, AAO x3, laying in bed HEENT: Head AT/ NC. Mucous membranes dry. PERRL. NECK: Supple, no lymphadenopathy, no carotid bruits. CARDIOVASCULAR: sinus tachycardia. Normal S1/S2, No m/r/g. No pitting edema of bilateral LEs. midline sternal scar from cabg RESPIRATORY: CTAB. No wheezing, rhonchi, crackles. GASTROINTESTINAL: Abdomen soft, vague lower abdominal tender no palpable masses. Bowel sounds present MUSCULOSKELETAL:? No cyanosis or edema, no visible joint swelling. NEUROLOGICAL: CN II-XII grossly intact. No focal deficits. Sensation intact, symmetric. PSYCHIATRIC: Awake and alert, not agitated, normal mood and affect. SKIN: No obvious rashes, no jaundice, normal turgor. Objective Labs 03/30/25 05:53 03/30/25 09:59 Labs: Laboratory Results - last 24 hr 03/29/25 03/29/25 03/29/25 15:02 15:50 16:32 WBC 10.8 H RBC 5.53 Hgb 15.3 Hct 46.8 MCV 85 MCH 27.7 MCHC 32.7 RDW Std Deviation 39.5 Plt Count 335 Neut % (Auto) 81 H Lymph % (Auto) 13 Moore % (Auto) 5 Eos % (Auto) 0 Baso % (Auto) 0 Neut # (Auto) 8.8 H Lymph # (Auto) 1.4 Moore # (Auto) 0.6 Eos # (Auto) 0.0 Baso # (Auto) 0.0 Immature Gran # (Auto) 0.07 H Absolute Nucleated RBC 0.00 Immature Gran % 1 H Nucleated RBC % 0 PT 10.2 INR 1.0 APTT 30.2 Puncture Site ABG pH ABG pCO2 ABG pO2 ABG HCO3 ABG O2 Saturation ABG Base Excess VBG pH 7.10 L VBG pCO2 32 L VBG pO2 46 VBG O2 Sat (Jamilah) 75 L VBG Base Excess -19 L FiO2 Sodium 133 L 132 L Potassium 4.7 4.6 Chloride 99 97 L Carbon Dioxide < 10.0 L* < 10.0 L* Anion Gap 24 H 25 H BUN 22 26 H Creatinine 1.4 H 1.3 Estim Creat Clear Calc Not Performed. Not Performed. eGFR 58 L > 60 BUN/Creatinine Ratio 16 20 Glucose [address] Glu mg/dL Hemoglobin A1c Calculated Osmolality 278 277 Lactic Acid Calcium 9.4 9.4 Corrected Calcium 9.4 9.4 Phosphorus 5.4 H Magnesium 2.1 2.4 Total Bilirubin 1.1 AST 22 ALT 27 Alkaline Phosphatase 106 Troponin I < 0.020 < 0.020 B-Natriuretic Peptide < 20 Total Protein 8.1 Albumin 5.0 5.2 H Globulin 3.1 Albumin/Globulin Ratio 1.6 Lipase 39 Beta-Hydroxybutyrate/Acetoacetate > 6.4 H TSH 0.53 L Free T4 1.33 Ur Collection Type Clean Catch Urine Color Lt-Yellow Urine Clarity Clear Urine pH 5.5 Ur Specific [place] 1.030 Urine Protein Trace Urine Glucose (UA) 4+ A Urine Ketones 4+ A Urine Blood Negative Urine Nitrite Negative Urine Bilirubin Negative Urine Urobilinogen (Auto) Negative Ur Leukocyte Esterase Negative Urine RBC 1 Urine WBC < 1 Ur Squamous Epith Cells 0 Amorphous Crystals Present A Urine Bacteria Rare Ur Culture Indicated? Not Indicated Urine Opiates Screen Negative Urine Fentanyl Screen Negative Ur Barbiturates Screen Negative U Amphetamin/Meth Scrn Negative U Benzodiazepines Scrn Negative U Cocaine Metab Screen Negative U Marijuana (THC) Screen Negative 03/29/25 03/29/25 03/29/25 17:57 18:24 22:03 WBC RBC Hgb Hct MCV MCH MCHC RDW Std Deviation Plt Count Neut % (Auto) Lymph % (Auto) Moore % (Auto) Eos % (Auto) Baso % (Auto) Neut # (Auto) Lymph # (Auto) Moore # (Auto) Eos # (Auto) Baso # (Auto) Immature Gran # (Auto) Absolute Nucleated RBC Immature Gran % Nucleated RBC % PT INR APTT Puncture Site Left Radial ABG pH 7.18 L* ABG pCO2 23 L ABG pO2 118 H ABG HCO3 9 L* ABG O2 Saturation 97 ABG Base Excess -18 L VBG pH VBG pCO2 VBG pO2 VBG O2 Sat (Jamilah) VBG Base Excess FiO2 21 Sodium 136 Potassium 4.5 Chloride 104 Carbon Dioxide 14.2 L* Anion Gap 18 H BUN 20 Creatinine 1.0 Estim Creat Clear Calc Not Performed. eGFR > 60 BUN/Creatinine Ratio 20 Glucose [address] Glu mg/dL Hemoglobin A1c Calculated Osmolality 276 Lactic Acid 2.6 H 1.2 Calcium 8.3 Corrected Calcium 8.3 L Phosphorus 4.0 Magnesium 1.9 Total Bilirubin AST ALT Alkaline Phosphatase Troponin I < 0.020 B-Natriuretic Peptide Total Protein Albumin 4.3 D Globulin Albumin/Globulin Ratio Lipase Beta-Hydroxybutyrate/Acetoacetate TSH Free T4 Ur Collection Type Urine Color Urine Clarity Urine pH Ur Specific [place] Urine Protein Urine Glucose (UA) Urine Ketones Urine Blood Urine Nitrite Urine Bilirubin Urine Urobilinogen (Auto) Ur Leukocyte Esterase Urine RBC Urine WBC Ur Squamous Epith Cells Amorphous Crystals Urine Bacteria Ur Culture Indicated? Urine Opiates Screen Urine Fentanyl Screen Ur Barbiturates Screen U Amphetamin/Meth Scrn U Benzodiazepines Scrn U Cocaine Metab Screen U Marijuana (THC) Screen 03/30/25 03/30/25 03/30/25 00:00 02:11 05:53 WBC 6.9 RBC 4.46 L Hgb 12.5 L D Hct 35.9 L D MCV 81 MCH 28.0 MCHC 34.8 RDW Std Deviation 36.9 Plt Count 293 D Neut % (Auto) 59 Lymph % (Auto) 30 Moore % (Auto) 9 Eos % (Auto) 1 Baso % (Auto) 0 Neut # (Auto) 4.1 Lymph # (Auto) 2.1 Moore # (Auto) 0.6 Eos # (Auto) 0.0 Baso # (Auto) 0.0 Immature Gran # (Auto) 0.04 H Absolute Nucleated RBC 0.00 Immature Gran % 1 H Nucleated RBC % 0 PT INR APTT Puncture Site ABG pH ABG pCO2 ABG pO2 ABG HCO3 ABG O2 Saturation ABG Base Excess VBG pH 7.25 L 7.47 VBG pCO2 35 L 26 L VBG pO2 29 143 H D VBG O2 Sat (Jamilah) 56 L D 98 H D VBG Base Excess -11 L -3 FiO2 Sodium 138 140 Potassium 3.8 D 3.8 Chloride 106 108 H Carbon Dioxide 19.7 L 20.2 Anion Gap 12 12 BUN 16 13 Creatinine 1.0 0.9 Estim Creat Clear Calc Not Performed. Not Performed. eGFR > 60 > 60 BUN/Creatinine Ratio 16 14 Glucose 138 [address] Glu mg/dL 312 H Hemoglobin A1c 12.5 H Calculated Osmolality 278 281 Lactic Acid 1.0 Calcium 8.0 L 8.2 L Corrected Calcium 8.1 L 8.4 L Phosphorus 2.6 2.3 L Magnesium 1.8 2.3 Total Bilirubin AST ALT Alkaline Phosphatase Troponin I B-Natriuretic Peptide Total Protein Albumin 3.9 3.7 Globulin Albumin/Globulin Ratio Lipase Beta-Hydroxybutyrate/Acetoacetate 0.6 H TSH Free T4 Ur Collection Type Urine Color Urine Clarity Urine pH Ur Specific [place] Urine Protein Urine Glucose (UA) Urine Ketones Urine Blood Urine Nitrite Urine Bilirubin Urine Urobilinogen (Auto) Ur Leukocyte Esterase Urine RBC Urine WBC Ur Squamous Epith Cells Amorphous Crystals Urine Bacteria Ur Culture Indicated? Urine Opiates Screen Urine Fentanyl Screen Ur Barbiturates Screen U Amphetamin/Meth Scrn U Benzodiazepines Scrn U Cocaine Metab Screen U Marijuana (THC) Screen 03/30/25 03/30/25 06:48 09:59 WBC RBC Hgb Hct MCV MCH MCHC RDW Std Deviation Plt Count Neut % (Auto) Lymph % (Auto) Moore % (Auto) Eos % (Auto) Baso % (Auto) Neut # (Auto) Lymph # (Auto) Moore # (Auto) Eos # (Auto) Baso # (Auto) Immature Gran # (Auto) Absolute Nucleated RBC Immature Gran % Nucleated RBC % PT 10.3 INR 1.0 APTT 25.1 Puncture Site ABG pH ABG pCO2 ABG pO2 ABG HCO3 ABG O2 Saturation ABG Base Excess VBG pH VBG pCO2 VBG pO2 VBG O2 Sat (Jamilah) VBG Base Excess FiO2 Sodium 139 Potassium 4.0 Chloride 108 H Carbon Dioxide 20.9 Anion Gap 10 BUN 10 Creatinine 0.8 Estim Creat Clear Calc 97.4 eGFR > 60 BUN/Creatinine Ratio [address]ucose [address] Glu mg/dL Hemoglobin A1c Calculated Osmolality 279 Lactic Acid Calcium 8.1 L Corrected Calcium 8.3 L Phosphorus 2.4 Magnesium 2.2 Total Bilirubin AST ALT Alkaline Phosphatase Troponin I B-Natriuretic Peptide Total Protein Albumin 3.8 Globulin Albumin/Globulin Ratio Lipase Beta-Hydroxybutyrate/Acetoacetate TSH Free T4 Ur Collection Type Urine Color Urine Clarity Urine pH Ur Specific [place] Urine Protein Urine Glucose (UA) Urine Ketones Urine Blood Urine Nitrite Urine Bilirubin Urine Urobilinogen (Auto) Ur Leukocyte Esterase Urine RBC Urine WBC Ur Squamous Epith Cells Amorphous Crystals Urine Bacteria Ur Culture Indicated? Urine Opiates Screen Urine Fentanyl Screen Ur Barbiturates Screen U Amphetamin/Meth Scrn U Benzodiazepines Scrn U Cocaine Metab Screen U Marijuana (THC) Screen ABG Interpretation ABG results: 03/29/25 03/29/25 03/30/25 16:32 18:24 00:00 ABG pH 7.18 L* ABG pCO2 23 L ABG pO2 118 H ABG HCO3 9 L* ABG O2 Saturation 97 ABG Base Excess -18 L VBG pH 7.10 L 7.25 L VBG pCO2 32 L 35 L VBG pO2 46 29 VBG Base Excess -19 L -11 L 03/30/25 05:53 ABG pH ABG pCO2 ABG pO2 ABG HCO3 ABG O2 Saturation ABG Base Excess VBG pH 7.47 VBG pCO2 26 L VBG pO2 143 H D VBG Base Excess -3 Quality Measures Quality Measures VTE prophylaxis Assessment & Plan Assessment Current Active Medications: Generic Name Dose Route Start Last Admin Trade Name Freq PRN Reason Stop Dose Admin Acetaminophen 650 mg 03/29/25 18:02 03/29/25 18:59 Acetaminophen 325 Mg Tablet PO 04/28/25 18:01 650 mg Q6HR PRN Administration fever > 100.4 , pain 1-3 Aspirin 81 mg 03/30/25 09:00 03/30/25 07:56 Aspirin Ec 81 Mg Tabec PO 04/29/25 08:59 81 mg QDAY ALLIE Administration Atorvastatin Calcium 40 mg 03/30/25 21:00 Atorvastatin Calcium 20 Mg Tablet PO 04/29/25 20:59 HS ALLIE Dextrose 50 ml 03/30/25 07:08 Dextrose 50%-Water Inj 50 Ml Syringe IV 04/29/25 07:07 Q15MIN PRN BG <50 OR BG <70 & pt unresponsive Duloxetine HCl 60 mg 03/30/25 10:30 03/30/25 10:53 Duloxetine Hcl 30 Mg Capsule PO 04/29/25 10:29 60 mg QDAY ALLIE Administration Famotidine 20 mg 03/30/25 21:00 Famotidine Inj 10 Mg/Ml Vial 2 Ml IVP 04/29/25 20:59 BID ALLIE Glucagon 1 mg 03/30/25 07:08 Glucagon Inj 1 Mg Vial IM Q15MIN PRN BG <70, and no IV access Insulin Degludec 25 unit 03/30/25 21:00 Insulin Degludec 5 Unit/0.05 Ml (Per 5 Units) SC 04/29/25 20:59 HS [facility] Insulin Human Lispro 5 unit 03/30/25 11:30 Insulin Lispro (Admelog) 1 Unit/0.01 Ml Unit SC 04/29/25 11:29 AC [facility] Insulin Human Lispro 0 unit 03/30/25 11:30 Insulin Lispro (Admelog) 1 Unit/0.01 Ml Unit SC 04/29/25 11:29 AC [facility] Protocol Metoclopramide HCl 10 mg 03/30/25 07:05 Metoclopramide Inj 5 Mg/Ml Vial 2 Ml IVP 04/29/25 07:04 Q6HR PRN NAUSEA OR VOMITING Protocol Plan Mr. 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 Neuro Seizure Disorder, unspecified - takes seizure med, unsure of dose, rx seizure precautions, aspiration precautions, resume home meds tomorrow after med rec complete. Hx CVA - resume asa and plavix Hx Valley Fever with memory deficits - fluconazole 200 mg PO qd MDD CV Sinus Tachycardia - resolved CAD with stents and CABG home meds, aspirin - resume ASA HLD - home atorvastatin 40 qd Pulm Tachypnea 2/2 metabolic acidosis iso DKA- resolved GI no active problems , lipase wnl Renal Metabolic Acidosis 2/2 DKA and Lactic Acidosis- resolved Compensatory Respiratory Alkalosis - resolved Ddx DKA Dx betahydroxy butrate down to 0.6, anion gap closed at about 0200, AG 12 with normal albumin, patient reports feeling much improved from prior Rx transition off insulin drip, on degludec 25 BID. LOUISE- resolved Ddx prerenal Dx: dehydration in setting of DKA Rx: encourage PO intake ENDO DKA Insulin dependent T2DM, poorly controlled Home meds, Janumet, levemir 30 qhs. Dx A1c 12, was previously poorly controlled at 12.6 in 09/2024, he states that he ran out of his insulin at home and tried to scrap picker his prescription Rx ISS step 3, q4hr sliding scale, and 5 units lispro with meals, and 25 U degludec BID. diabetic education, and ensure that he has home insulin and med equipment to measure blood sugar at home : Glucosuria Ketouria ddx in setting of dka and poorly controlled DM HEME no active problems. MSK Fibromyalgia - resume home cymbalta Skin no active problems Dispo:Admitted to ICU for DKA, d.c insulin drip and transitioned to sub q, patient was downgraded Diet: carb consistent diet Lines: PIV VTE ppx: lovenox 30 sq GI ppx: famotidine 20 BID Bowel Reg: not indicated Code status: full code Case disclosed with my senior resident Dr. Damian and my Attending Dr. Kyler Hamm MD PGY1
--- NOTE | 2025-03-30 13:19 | PC.CC ---
Request from CHRISTA Blanco, to s/w patient RE difficulty obtaining one of two prescribed insulins and a CGM. Noted multiple fills of Novolog FlexPen at [facility] and insulin glargine pen filled months ago. S/W [facility] who reported patient was prescribed insulin glargine U-300 insulin that was not covered by insurance. Verified [facility] covered under Medicare Part B + [employer]. Met w/ patient at bedside. Patient confirms he uses Novolog but that he has not been able to obtain Lantus in a long time. He reports he doesn't have enough insulin to control his BG. When asked for clarification, he states the pharmacy will tell him he is out of refills despite his MD sending refills during appointments as well as being told his insurance is not covering his insulin. Patient states he does not have the Klood darien. Regarding CGMs, he states his MD has ordered it multiple times but he has not received it from [facility]. He has used one in the past with a reader. He has a fingerstick glucometer but would prefer a CGM. Discussed possible barriers including prescribed insulin glargine U-300 being non-formulary, E-Rx transmission issues between MD and [facility], multiple prescriptions on file and difficulty with Medicare Part B billing for CGMs. Patient expresses preference to remain at [facility]. Encouraged patient to download the [facility] darien so that he can see the prescriptions he has on file including multiple prescriptions, refills and to confirm his E-Rxs have been received. Advised patient that he is currently on insulin degludec which is formulary with his insurance and to ensure a prescription is sent upon discharge. Discussed possibility of ordering CGM via [facility] from hospitalist and patient was agreeable. Patient to ask his daughter to help him with Klood darien. PharmD to follow-up with discharge prescriptions.
--- NOTE | 2025-03-30 14:01 | ESPR_ITS ---
<Statement entered by Juan Hahn MD - 03/30/25 18:11> ICU downgrade for DKA. 51-year-old male with a past medical history of type 2 diabetes mellitus, CAD status post CABG 5 years ago but has had total of 3 MIs, hyperlipidemia, fibromyalgia, MDD, seizure disorder who was admitted to the ICU for DKA who presented for 3 days of nausea and malaise. States that he had ran out of his insulin for the last few days prior to admission due to issues with pharmacy. Initial ABG showed pH 7.18, bicarb of 9, pCO2 23, pO2 118. Initial gap of 24, glucose 262, BHB > 6.4, and A1c of 12.5%. Was started on insulin drip and was transitioned to SC the following day with regimen of degludec 25 units daily and 5 units lispro with meals along with SSI. Gap closed x3 and BHG significantly downtrended. Downgraded to floors for further management. ----- Note reviewed and agree with care plan as documented. Please refer to the note below for further details. Plan discussed with attending physician Dr. Aaron Hahn MD PGY-2 Internal Medicine Documentation for date of: 03/30/25 Subjective Subjective Interval history: Mr. 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 Admitted to ICU for DKA. Patient's anion gap has closed 03/30 and was downgraded to floors. When I met and examined patient in ICU, he was resting in bed, in no acute distress. Patient denies nausea/vomiting today. Endorsed non-bloody vomit yesterday. Patient states he has numerous lower extremity healing/healed wounds from falling due to having Says he has Left eye pressure ever since starting diabetes med outpatient, unsure of what med, but states it was prescribed this year. Patient states he is able to tolerate food and water Denies fever, chills, headache, chest pain, shortness of breath, dysuria, constipation, diarrhea. Downgraded from ICU today Exam Vital Signs Temp Pulse Resp BP Pulse Ox O2 Del Method 98.2 F 100 17 123/73 99 Room Air 03/30/25 11:55 03/30/25 11:55 03/30/25 11:55 03/30/25 11:55 03/30/25 11:55 03/30/25 11:55 Narrative Exam General: No acute distress; A&Ox3 Skin: Warm, dry, intact, no obvious rash. HENT: NCAT, EOMI/PERRL, not icteric. External ears normal. No rhinorrhea. Moist mucous membranes Cardiovascular: Tachycardic, regular rhythm, no murmur, +S1/S2. Respiratory: Lungs CTAB GI: Soft, Mild Left/Right Upper GI tenderness, non-distended. No guarding or rebound tenderness. : No suprapubic tenderness. No flank tenderness bilaterally. Extremities: numerous bilateral lower extremity wounds; no edema, no cyanosis, no clubbing. Extremity pulses present Neuro: Grossly nonfocal. Moving all 4 extremities. CN not formally tested but appear grossly intact. Psychiatric: Cooperative, appropriate affect. Objective Labs 03/31/25 05:50 03/31/25 05:50 Labs: Laboratory Results - last 24 hr 03/29/25 03/29/25 03/29/25 15:02 15:50 16:32 WBC 10.8 H RBC 5.53 Hgb 15.3 Hct 46.8 MCV 85 MCH 27.7 MCHC 32.7 RDW Std Deviation 39.5 Plt Count 335 Neut % (Auto) 81 H Lymph % (Auto) 13 [place] % (Auto) 5 Eos % (Auto) 0 Baso % (Auto) 0 Neut # (Auto) 8.8 H Lymph # (Auto) 1.4 [place] # (Auto) 0.6 Eos # (Auto) 0.0 Baso # (Auto) 0.0 Immature Gran # (Auto) 0.07 H Absolute Nucleated RBC 0.00 Immature Gran % 1 H Nucleated RBC % 0 PT 10.2 INR 1.0 APTT 30.2 Puncture Site ABG pH ABG pCO2 ABG pO2 ABG HCO3 ABG O2 Saturation ABG Base Excess VBG pH 7.10 L VBG pCO2 32 L VBG pO2 46 VBG O2 Sat (Jamilah) 75 L VBG Base Excess -19 L FiO2 Sodium 133 L 132 L Potassium 4.7 4.6 Chloride 99 97 L Carbon Dioxide < 10.0 L* < 10.0 L* Anion Gap 24 H 25 H BUN 22 26 H Creatinine 1.4 H 1.3 Estim Creat Clear Calc Not Performed. Not Performed. eGFR 58 L > 60 BUN/Creatinine Ratio 16 20 Glucose [address] Glu mg/dL Hemoglobin A1c Calculated Osmolality 278 277 Lactic Acid Calcium 9.4 9.4 Corrected Calcium 9.4 9.4 Phosphorus 5.4 H Magnesium 2.1 2.4 Total Bilirubin 1.1 AST 22 ALT 27 Alkaline Phosphatase 106 Troponin I < 0.020 < 0.020 B-Natriuretic Peptide < 20 Total Protein 8.1 Albumin 5.0 5.2 H Globulin 3.1 Albumin/Globulin Ratio 1.6 Lipase 39 Beta-Hydroxybutyrate/Acetoacetate > 6.4 H TSH 0.53 L Free T4 1.33 Ur Collection Type Clean Catch Urine Color Lt-Yellow Urine Clarity Clear Urine pH 5.5 Ur Specific [place] 1.030 Urine Protein Trace Urine Glucose (UA) 4+ A Urine Ketones 4+ A Urine Blood Negative Urine Nitrite Negative Urine Bilirubin Negative Urine Urobilinogen (Auto) Negative Ur Leukocyte Esterase Negative Urine RBC 1 Urine WBC < 1 Ur Squamous Epith Cells 0 Amorphous Crystals Present A Urine Bacteria Rare Ur Culture Indicated? Not Indicated Urine Opiates Screen Negative Urine Fentanyl Screen Negative Ur Barbiturates Screen Negative U Amphetamin/Meth Scrn Negative U Benzodiazepines Scrn Negative U Cocaine Metab Screen Negative U Marijuana (THC) Screen Negative 03/29/25 03/29/25 03/29/25 17:57 18:24 22:03 WBC RBC Hgb Hct MCV MCH MCHC RDW Std Deviation Plt Count Neut % (Auto) Lymph % (Auto) [place] % (Auto) Eos % (Auto) Baso % (Auto) Neut # (Auto) Lymph # (Auto) [place] # (Auto) Eos # (Auto) Baso # (Auto) Immature Gran # (Auto) Absolute Nucleated RBC Immature Gran % Nucleated RBC % PT INR APTT Puncture Site Left Radial ABG pH 7.18 L* ABG pCO2 23 L ABG pO2 118 H ABG HCO3 9 L* ABG O2 Saturation 97 ABG Base Excess -18 L VBG pH VBG pCO2 VBG pO2 VBG O2 Sat (Jamilah) VBG Base Excess FiO2 21 Sodium 136 Potassium 4.5 Chloride 104 Carbon Dioxide 14.2 L* Anion Gap 18 H BUN 20 Creatinine 1.0 Estim Creat Clear Calc Not Performed. eGFR > 60 BUN/Creatinine Ratio 20 Glucose [address] Glu mg/dL Hemoglobin A1c Calculated Osmolality 276 Lactic Acid 2.6 H 1.2 Calcium 8.3 Corrected Calcium 8.3 L Phosphorus 4.0 Magnesium 1.9 Total Bilirubin AST ALT Alkaline Phosphatase Troponin I < 0.020 B-Natriuretic Peptide Total Protein Albumin 4.3 D Globulin Albumin/Globulin Ratio Lipase Beta-Hydroxybutyrate/Acetoacetate TSH Free T4 Ur Collection Type Urine Color Urine Clarity Urine pH Ur Specific [place] Urine Protein Urine Glucose (UA) Urine Ketones Urine Blood Urine Nitrite Urine Bilirubin Urine Urobilinogen (Auto) Ur Leukocyte Esterase Urine RBC Urine WBC Ur Squamous Epith Cells Amorphous Crystals Urine Bacteria Ur Culture Indicated? Urine Opiates Screen Urine Fentanyl Screen Ur Barbiturates Screen U Amphetamin/Meth Scrn U Benzodiazepines Scrn U Cocaine Metab Screen U Marijuana (THC) Screen 03/30/25 03/30/25 03/30/25 00:00 02:11 05:53 WBC 6.9 RBC 4.46 L Hgb 12.5 L D Hct 35.9 L D MCV 81 MCH 28.0 MCHC 34.8 RDW Std Deviation 36.9 Plt Count 293 D Neut % (Auto) 59 Lymph % (Auto) 30 [place] % (Auto) 9 Eos % (Auto) 1 Baso % (Auto) 0 Neut # (Auto) 4.1 Lymph # (Auto) 2.1 [place] # (Auto) 0.6 Eos # (Auto) 0.0 Baso # (Auto) 0.0 Immature Gran # (Auto) 0.04 H Absolute Nucleated RBC 0.00 Immature Gran % 1 H Nucleated RBC % 0 PT INR APTT Puncture Site ABG pH ABG pCO2 ABG pO2 ABG HCO3 ABG O2 Saturation ABG Base Excess VBG pH 7.25 L 7.47 VBG pCO2 35 L 26 L VBG pO2 29 143 H D VBG O2 Sat (Jamilah) 56 L D 98 H D VBG Base Excess -11 L -3 FiO2 Sodium 138 140 Potassium 3.8 D 3.8 Chloride 106 108 H Carbon Dioxide 19.7 L 20.2 Anion Gap 12 12 BUN 16 13 Creatinine 1.0 0.9 Estim Creat Clear Calc Not Performed. Not Performed. eGFR > 60 > 60 BUN/Creatinine Ratio 16 14 Glucose 138 [address] Glu mg/dL 312 H Hemoglobin A1c 12.5 H Calculated Osmolality 278 281 Lactic Acid 1.0 Calcium 8.0 L 8.2 L Corrected Calcium 8.1 L 8.4 L Phosphorus 2.6 2.3 L Magnesium 1.8 2.3 Total Bilirubin AST ALT Alkaline Phosphatase Troponin I B-Natriuretic Peptide Total Protein Albumin 3.9 3.7 Globulin Albumin/Globulin Ratio Lipase Beta-Hydroxybutyrate/Acetoacetate 0.6 H TSH Free T4 Ur Collection Type Urine Color Urine Clarity Urine pH Ur Specific [place] Urine Protein Urine Glucose (UA) Urine Ketones Urine Blood Urine Nitrite Urine Bilirubin Urine Urobilinogen (Auto) Ur Leukocyte Esterase Urine RBC Urine WBC Ur Squamous Epith Cells Amorphous Crystals Urine Bacteria Ur Culture Indicated? Urine Opiates Screen Urine Fentanyl Screen Ur Barbiturates Screen U Amphetamin/Meth Scrn U Benzodiazepines Scrn U Cocaine Metab Screen U Marijuana (THC) Screen 03/30/25 03/30/25 06:48 09:59 WBC RBC Hgb Hct MCV MCH MCHC RDW Std Deviation Plt Count Neut % (Auto) Lymph % (Auto) [place] % (Auto) Eos % (Auto) Baso % (Auto) Neut # (Auto) Lymph # (Auto) [place] # (Auto) Eos # (Auto) Baso # (Auto) Immature Gran # (Auto) Absolute Nucleated RBC Immature Gran % Nucleated RBC % PT 10.3 INR 1.0 APTT 25.1 Puncture Site ABG pH ABG pCO2 ABG pO2 ABG HCO3 ABG O2 Saturation ABG Base Excess VBG pH VBG pCO2 VBG pO2 VBG O2 Sat (Jamilah) VBG Base Excess FiO2 Sodium 139 Potassium 4.0 Chloride 108 H Carbon Dioxide 20.9 Anion Gap 10 BUN 10 Creatinine 0.8 Estim Creat Clear Calc 97.4 eGFR > 60 BUN/Creatinine Ratio [address]ucose [address] Glu mg/dL Hemoglobin A1c Calculated Osmolality 279 Lactic Acid Calcium 8.1 L Corrected Calcium 8.3 L Phosphorus 2.4 Magnesium 2.2 Total Bilirubin AST ALT Alkaline Phosphatase Troponin I B-Natriuretic Peptide Total Protein Albumin 3.8 Globulin Albumin/Globulin Ratio Lipase Beta-Hydroxybutyrate/Acetoacetate TSH Free T4 Ur Collection Type Urine Color Urine Clarity Urine pH Ur Specific [place] Urine Protein Urine Glucose (UA) Urine Ketones Urine Blood Urine Nitrite Urine Bilirubin Urine Urobilinogen (Auto) Ur Leukocyte Esterase Urine RBC Urine WBC Ur Squamous Epith Cells Amorphous Crystals Urine Bacteria Ur Culture Indicated? Urine Opiates Screen Urine Fentanyl Screen Ur Barbiturates Screen U Amphetamin/Meth Scrn U Benzodiazepines Scrn U Cocaine Metab Screen U Marijuana (THC) Screen ABG Interpretation ABG results: 03/29/25 03/29/25 03/30/25 16:32 18:24 00:00 ABG pH 7.18 L* ABG pCO2 23 L ABG pO2 118 H ABG HCO3 9 L* ABG O2 Saturation 97 ABG Base Excess -18 L VBG pH 7.10 L 7.25 L VBG pCO2 32 L 35 L VBG pO2 46 29 VBG Base Excess -19 L -11 L 03/30/25 05:53 ABG pH ABG pCO2 ABG pO2 ABG HCO3 ABG O2 Saturation ABG Base Excess VBG pH 7.47 VBG pCO2 26 L VBG pO2 143 H D VBG Base Excess -3 Quality Measures Quality Measures VTE prophylaxis Assessment & Plan Assessment Current Active Medications: Generic Name Dose Route Start Last Admin Trade Name Freq PRN Reason Stop Dose Admin Acetaminophen 650 mg 03/29/25 18:02 03/29/25 18:59 Acetaminophen 325 Mg Tablet PO 04/28/25 18:01 650 mg Q6HR PRN Administration fever > 100.4 , pain 1-3 Aspirin 81 mg 03/30/25 09:00 03/30/25 07:56 Aspirin Ec 81 Mg Tabec PO 04/29/25 08:59 81 mg QDAY ALLIE Administration Atorvastatin Calcium 40 mg 03/30/25 21:00 Atorvastatin Calcium 20 Mg Tablet PO 04/29/25 20:59 HS ALLIE Dextrose 50 ml 03/30/25 07:08 Dextrose 50%-Water Inj 50 Ml Syringe IV 04/29/25 07:07 Q15MIN PRN BG <50 OR BG <70 & pt unresponsive Duloxetine HCl 60 mg 03/30/25 10:30 03/30/25 10:53 Duloxetine Hcl 30 Mg Capsule PO 04/29/25 10:29 60 mg QDAY ALLIE Administration Famotidine 20 mg 03/30/25 21:00 Famotidine Inj 10 Mg/Ml Vial 2 Ml IVP 04/29/25 20:59 BID ALLIE Glucagon 1 mg 03/30/25 07:08 Glucagon Inj 1 Mg Vial IM Q15MIN PRN BG <70, and no IV access Insulin Degludec 25 unit 03/30/25 21:00 Insulin Degludec 5 Unit/0.05 Ml (Per 5 Units) SC 04/29/25 20:59 HS ALLIE Insulin Human Lispro 5 unit 03/30/25 11:30 03/30/25 11:56 Insulin Lispro (Admelog) 1 Unit/0.01 Ml Unit SC 04/29/25 11:29 5 unit AC ALLIE Administration Insulin Human Lispro 0 unit 03/30/25 11:30 03/30/25 11:56 Insulin Lispro (Admelog) 1 Unit/0.01 Ml Unit SC 04/29/25 11:29 2 unit AC ALLIE Administration Protocol Metoclopramide HCl 10 mg 03/30/25 07:05 Metoclopramide Inj 5 Mg/Ml Vial 2 Ml IVP 04/29/25 07:04 Q6HR PRN NAUSEA OR VOMITING Protocol Plan Mr. 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 Admitted to ICU for DKA. Patient's anion gap has closed 03/30 and was downgraded to floors. #T2DM, insulin dependent, poorly controlled #DKA, resolved Patient states he ran out of his insulin at home and unable to pick it up at pharmacy Initially had betahydroxy butrate >6.4, glucose 200s, AG 24 (nl albumin), pH 7.18, glucosuria Admitted to ICU for DKA, protocol was in place Patient downgraded to floors after AGAP closed; glucose 150, bicarb 20.9 A1c 12.5 -Degludec 25 u sc hs -Lispro 5 u sc ac -Insulin sliding scale step [address] -will need close follow up with pcp/endocrine outpatient -Diabetes Education -Zofran prn -hypoglycemic protocol in place #tachycardia Due to fluid shifts i/s/o dka EKG showed sinus tachycardia on admission improving -will continue to monitor #Leukocytosis, resolved likely reactive i/s/o dka -blood cultures pending, will follow up #Seizure disorder, unspecified Patient unsure what seizure med he takes. 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 with memory and L-sided motor deficits Patient states he takes medication for it -fluconazole 200 mg po qd #CAD with stents/cabg -atorvastatin 40 mg po hs -aspirin 81 mg po qd #Anemia, normocytic hgb 12.5, may be dilutional from fluids -will continue to monitor #HLD -atorvastatin 40 mg po hs #fibromyalgia - home meds, not yet confirmed, meloxicam, gabapentin, APAP-Codeine Hospital Management: Disposition: tele Diet: Carb consistent GI Prophylaxis: famotidine 20 mg iv bid Bowel Prophylaxis: DVT Prophylaxis: SCD CODE STATUS: full code Patient plan of care was discussed with the attending physician, Dr. Walker & senior resident Dr. Jovani Peng MD PGY-1 Attending Provider Attestation/Addendum I, Sandhya Walker, , attest that I was physically present for the green portions of the service and evaluated the patient with the resident and I reviewed and discussed the case with the resident and agree with the resident's findings and plans of care as documented above Patient is a 59-year-old male with past medical history of type 2 diabetes, hyperlipidemia, fibromyalgia, CAD, seizure disorder who was admitted for DKA after patient was out of insulin for three days. Patient denies previous history of DKA. He takes 20 units of short acting and 20 units of long acting insulin twice a day. Patient was admitted to ICU for insulin drip and has now been transitioned to degludec 25 units daily and 5 units of lispro AC. Patient states he also takes a pill at home for his DM. Gap has been closed with resolution of metabolic acidosis. Patient has been downgraded from ICU and transferred to hospitalist service. Patient states that he is feeling well. WIll continue with current regimen and anticipate DC within next 24h if he remains stable and blood glucose is controlled.
[2025-03-30] MEDS: ATORVASTATIN CALCIUM 20 MG TABLET 40 MG PO (21:16)
[2025-03-30] MEDS: INSULIN DEGLUDEC 5 UNIT/0.05 ML (PER 5 UNITS) 25 UNIT SC (21:21)
[2025-03-31 06:12] LABS: Basophils # (Auto) 0.0 Thou/mm3 (0.0-0.2); Basophils % (Auto) 1 % (0-2.5); Eosinophils # (Auto) 0.1 Thou/mm3 (0.0-0.5); Eosinophils % (Auto) 1 % (0-10); Hematocrit 40.2 % (41.0-53.0); Hemoglobin 13.9 g/dL (13.5-16.0); Immature Granulocytes Auto 0.03 Thou/mm3 (0.00-0.00); Lymphocytes # (Auto) 2.6 Thou/mm3 (1.0-4.8); Lymphocytes % (Auto) 42 % (10-50); Mean Corpuscular HGB Conc 34.6 g/dl (31.0-37.0); Mean Corpuscular Hemoglobin 27.8 pg (25.0-35.0); Mean Corpuscular Volume 80 fL (80-100); Monocytes # (Auto) 0.7 Thou/mm3 (0.0-0.8); Monocytes % (Auto) 11 % (0-12); Neutrophils # (Auto) 2.8 Thou/mm3 (1.8-7.7); Neutrophils % (Auto) 45 % (37-80); Nucleated Red Blood Cell # 0.00 Thou/mm3 (0.00-0.00); Nucleated Red Blood Cell % 0 /100 WBC (0); Platelet Count 261 Thou/mm3 (140-440); RDW Standard Deviation 37.2 fL (35.1-43.9); Red Blood Count 5.00 Miln/mm3 (4.50-5.90); White Blood Count 6.1 Thou/mm3 (3.8-10.6)
[2025-03-31 06:36] LABS: Albumin, Serum 4.2 gm/dL (3.5-5.0); Anion Gap 14 (7-16); BUN/Creatinine Ratio 11 Ratio (12-20); Blood Urea Nitrogen 8 mg/dL (9-23); Calcium 8.6 mg/dL (8.3-10.6); Calcium (Corrected) 8.6 mg/dL (8.5-10.1); Carbon Dioxide 23.5 mMol/L (20.0-31.0); Chloride 105 mMol/L (98-107); Creatinine (Component) 0.7 mg/dL (0.6-1.3); Estimated Creatinine Clearance 111.3 mL/min (>60); Glucose 90 mg/dL (74-106); Magnesium 2.1 mg/dL (1.6-2.6); Osmolality,Calculated 281 (275-295); Phosphorous 2.5 mg/dL (2.4-5.1); Potassium 3.3 mMol/L (3.4-5.1); Sodium 142 mMol/L (136-145); eGFR > 60 See Note
[2025-03-31 08:00] VITALS: BP 123/77; PULSE 105; RESP 18; TEMP 36.6; O2SAT 98
[2025-03-31] MEDS: FAMOTIDINE INJ 10 MG/ML VIAL 2 ML 20 MG IVP (08:10)
[2025-03-31] MEDS: ASPIRIN EC 81 MG TABEC PO (08:11)
[2025-03-31] MEDS: DULoxetine HCL 30 MG CAPSULE 60 MG PO (08:11)
[2025-03-31] MEDS: INSULIN LISPRO (AdmeLOG) 1 UNIT/0.01 ML UNIT 5 UNIT SC ×2 (08:12→12:34)
[2025-03-31] MEDS: DIVALPROEX SOD ER 250 MG TABER (NON-FORMULARY) 500 MG PO (08:24)
--- NOTE | 2025-03-31 09:38 | PC.SS ---
[employer] conducted bedside contact with the patient conduct initial assessment and to discuss discharge planning.? Patient confirmed demographic information.? Patient resides at home with daughter, Nidhi Fernando .? Patient does not utilize any form of DME to assist with ambulation.? Patient does not utilize home oxygen.? Patient describes the ability to complete ADL?s independently.? Patient identified daughter, Nidhi Fernando; as medical surrogate decision maker.? Patient?s PCP is Dr. Fernando, [facility].? Patient does not participate with dialysis.? Patient does not possess any specialty providers.? Patient utilizes [facility] for medication services.? Patient possesses history of diabetes, insulin dependent.? Plan is for the patient to return home at the time of discharge.? Family will provide transportation on behalf of the patient.? No further discharge needs identified by the patient.? No further intervention required at this time, social services coordinator will be available to address any further concerns.? Next of Kin: Nidhi Fernando D/C Plan: Home
--- NOTE | 2025-03-31 10:02 | ESDS_ITS ---
<Statement entered by Sandhya Walker DO - 03/31/25 19:42> I, Sandhya Walker DO, attest that I was physically present for the green portions of the service and evaluated the patient with the resident and I reviewed and discussed the case with the resident and agree with the resident's findings and plans of care as documented above <Statement entered by Juan Hahn MD - 03/31/25 14:24> ----- Note reviewed and agree with care plan as documented. Please refer to the note below for further details. Plan discussed with attending physician Dr. Aaron Hahn MD PGY-2 Internal Medicine Planned Discharge Date 03/31/25 DS: Providers Provider Date of admission: 03/29/25 17:58 Primary care physician: Etienne Fernando MD Admitting Provider: Danielle Chávez MD Attending Provider on Admission: Danielle Chávez MD Consults: 03/29/25 17:05 Referral Registered Dietitian Routine Comment: 03/29/25 19:19 Referral Registered Dietitian Routine Comment: Attending Provider on DC: Sandhya Walker DO Discharging Provider: Sandhya Walker DO DS: Diagnosis Problem List Completed Was Problem List Reviewed/Reconciled?: Yes Hospital Course Hospital Course Hospital course: Mr. Abdullahi Cote is a 59-year-old gentleman with history of T2 IDDM, hyperlipidemia, fibromyalgia, CAD s/p CABG, MDD, seizure disorder, memory loss s econdary to residual deficits from valley fever, who presented to the ED with 3 days of nausea, and malaise after not taking insulin for the past 3 days. Patient was admitted to ICU for DKA. Patient stated the pharmacy he went to did not have his medication. Patient presented with elevated glucose levels, BHB and was sinus tachy. Patient's ABG showed pH of 7.10. Patient was immediately fluid resuscitated and was started on insulin drip with bicarb being given as well. Patient was placed on dka protocol and successfully improved, having his anion gap close on 03/30 and was downgraded to floors. Patient was tolerating oral intake well, had his insulin regimen started and was counseled on what he needs to do outpatient regarding taking his diabetes medication and obtaining proper counseling and follow up with his pcp. Patient was discharged in a clinically stable state. Discharge Instructions - We are prescribing you 20 u long acting insulin, glargine, which should be taken twice per day - We are prescribing you short acting insulin, aspart, which 15 u should be taken 3 times per day. ? Continue taking all other home medications as prescribed ? Follow-up with PCP within 1-2 weeks of discharge ? If you do not have a PCP, you can follow-up at the [facility] (you can call [phone] to make an appointment) ? Return to ED if symptoms worsen or recur #T2DM, insulin dependent, poorly controlled #DKA #tachycardia #Leukocytosis #Seizure disorder, unspecified #CVA #Valley Fever #CAD with stents/cabg #Anemia, normocytic #HLD #fibromyalgia Patient plan of care was discussed with the attending physician, Dr. Walker & senior resident Dr. Jovani Peng MD PGY-1 Time Spent with Patient Time attestation: Total time spent providing and/or coordinating discharge services: Time spent: Greater than 30 minutes Exam Vital Signs Temp Pulse Resp BP Pulse Ox O2 Del Method 97.8 F 105 H 18 123/77 98 Room Air 03/31/25 08:00 03/31/25 08:00 03/31/25 08:00 03/31/25 08:00 03/31/25 08:00 03/31/25 08:00 Narrative Exam General: No acute distress; A&Ox3 Skin: Warm, dry, intact, no obvious rash. HENT: NCAT, EOMI/PERRL, not icteric. External ears normal. No rhinorrhea. Moist mucous membranes Cardiovascular: Tachycardic, regular rhythm, no murmur, +S1/S2. Respiratory: Lungs CTAB GI: Soft, non-tender, non-distended. No guarding or rebound tenderness. : No suprapubic tenderness. No flank tenderness bilaterally. Extremities: numerous bilateral lower extremity wounds; no edema, no cyanosis, no clubbing. Extremity pulses present Neuro: Grossly nonfocal. Moving all 4 extremities. CN not formally tested but appear grossly intact. Psychiatric: Cooperative, appropriate affect. Discharge Plan Plan Patient Disposition: HOME (Self Care) Patient condition on transfer: Stable Care Plan Goals: - We are prescribing you 20 u long acting insulin, glargine, which should be taken twice per day - We are prescribing you short acting insulin, aspart, which 15 u should be taken 3 times per day. ? Continue taking all other home medications as prescribed ? Follow-up with PCP within 1-2 weeks of discharge ? If you do not have a PCP, you can follow-up at the [facility] (you can call [phone] to make an appointment) ? Return to ED if symptoms worsen or recur Prescriptions/Referrals Prescriptions/Med Rec: New insulin glargine [Lantus Solostar U-100 Insulin] 100 unit/mL (3 mL) insulin pen 20 unit subcut BID Qty: 15 0RF insulin aspart U-100 100 unit/mL (3 mL) insulin pen 15 unit subcut TID Qty: 15 0RF Continued Janumet 50-1,000 mg Tablet 50 mg PO BID gabapentin 400 mg Capsule 600 mg PO TID divalproex 500 mg Tablet Extended Release 24 Hr 500 mg PO QDAY aripiprazole 30 mg Tablet 30 mg PO QDAY duloxetine 60 mg Capsule,Delayed Release(Dr/Ec) 60 mg PO QDAY aspirin [Aspir-Low] 81 mg Tablet,Delayed Release (Dr/Ec) 81 mg PO QDAY Qty: 30 0RF Discontinued insulin detemir U-100 100 unit/mL (3 mL) Insulin Pen 20 unit SUBCUT BID Referrals: Etienne Fernando MD [Primary Care Provider, Family Practice] Patient/Caregiver Discharge Instructions Education Materials: Diabetes and Heart Disease, Diabetes Gum Disease, Diabetes Exercise Get Started, Diabetes Exercise Plan, Diabetes Learn Serve Portion Size, Diabetes Carbs Fats Protein, Diabetes PAD Print Language: Ukrainian Stand Alone Forms: Mini Award Info., Patient Portal Info Letter Discharge Order Discharge Orders: Discharge (Routine); Ordered 03/31/25 Ordered By: Juan Barcenas Alangelito Quality Discharge Quality Measures VTE prophylaxis
--- NOTE | 2025-03-31 14:49 | PC.CC ---
Sent signed orders for [employer] Dayana 3 Plus sensors + Dayana 3 reader to [employer] via [employer].
== END 2025-03-31 13:04 | disposition home or self-care (01) | DRG 638 ==
LOC: SERX 18:02 → SERHOLD 18:36 → S2SX 20:04 → S3NX 03-30 16:58
PROVIDERS: Nurse Practitioner Family; Student in an Organized Health Care Education/Training Program; Admitting Provider Internal Medicine; PCP Family Medicine; Visit Provider Internal Medicine
DX: E11.10 Type 2 diabetes mellitus with ketoacidosis without coma (principal); B38.0 Acute pulmonary coccidioidomycosis; E87.1 Hypo-osmolality and hyponatremia; N17.9 Acute kidney failure, unspecified; E78.5 Hyperlipidemia, unspecified; I25.10 Atherosclerotic heart disease of native coronary artery without angina pectoris; Z95.1 Presence of aortocoronary bypass graft; Z95.5 Presence of coronary angioplasty implant and graft; Z86.73 Personal history of transient ischemic attack (TIA), and cerebral infarction without residual deficits; I25.2 Old myocardial infarction; M79.7 Fibromyalgia; Z79.82 Long term (current) use of aspirin; G40.909 Epilepsy, unspecified, not intractable, without status epilepticus; R00.0 Tachycardia, unspecified; T38.3X6A Underdosing of insulin and oral hypoglycemic [antidiabetic] drugs, initial encounter; Z79.02 Long term (current) use of antithrombotics/antiplatelets; Z79.4 Long term (current) use of insulin; Z79.899 Other long term (current) drug therapy; Z91.148 Patient's other noncompliance with medication regimen for other reason
CPT/HCPCS: 36415; 36600; 71045; 80053; 80069; 80307; 81001; 82010; 82803; 83036; 83605; 83690; 83735; 83880; 84439; 84443; 84484; 85025; 85610; 85730; 87040; 87081; 93005; 99284; J1650; J1815; J3475; J3480; J3490; J7120; J7121; A9270